=== PATIENT | male | born 1970 | race Caucasian/White ===

== ENCOUNTER 2024-12-15 10:29 | Inpatient (IN) | payer OTHER, SELFPAY ==
[2024-12-15] VITALS (10 sets, daily range): BP systolic 121–148; BP diastolic 61–93; PULSE 55–68; RESP 15–26; TEMP 36.8–37.3; O2SAT 95–100; BMI 20.5
--- NOTE | 2024-12-15 10:32 | DI.RAD.S_ITS ---
PROCEDURE: XR HIP W PEL IF DONE LT 2V INDICATIONS: FALL WHILE SKATING, SEVERE PAIN TECHNIQUE: AP pelvis with lateral view(s) of the left hip(s). COMPARISON: None. FINDINGS: Diffuse osseous demineralization. Acute, comminuted, left proximal femoral intertrochanteric fracture with involvement of the greater/lesser trochanters. The hip joints, sacroiliac joints, and pubic symphysis are preserved. IMPRESSION: Acute, comminuted left proximal femoral intertrochanteric fracture. Dictated by: Arnoldo Curry M.D. on 12/15/2024 at 11:23 Approved by: Arnoldo Curry M.D. on 12/15/2024 at 11:24
--- NOTE | 2024-12-15 10:32 | DI.RAD.S_ITS ---
PROCEDURE: XR FEMUR LT MIN 2V INDICATIONS: FALL WHILE SKATING, SEVERE PAIN TECHNIQUE: 2 views of the femur were acquired. COMPARISON: None. FINDINGS: No acute fracture or dislocation of the distal left femur. IMPRESSION: No acute fracture or dislocation of the left distal femur. Please see the same-day pelvis and left hip x-rays for details regarding the left hip fracture. Dictated by: Arnoldo Curry M.D. on 12/15/2024 at 11:24 Approved by: Arnoldo Curry M.D. on 12/15/2024 at 11:24
--- NOTE | 2024-12-15 10:37 | ED_ITS ---
HPI - Extremity Injury (Lower) General Chief Complaint: Trauma Stated Complaint: poss Femur fx Time Seen by Provider: 12/15/24 10:32 History of Present Illness HPI Narrative: 54-year-old male with no reported past medical history presents by EMS from the [facility] for left hip pain. Patient was at the [facility] with his son and had a fall, landing on his left thigh. Reports 10/10 left thigh pain. He was given fentanyl by EMS prior to arrival. On arrival patient continues to complain of left hip pain. He has intact sensation in his toes and foot. Denies any other injury. Denies hitting his head, loss of consciousness, use of blood thinners. Related Data Allergies Allergy/AdvReac Type Severity Reaction Status Date / Time No Known Drug Allergies Allergy Verified 12/15/24 10:40 Patient History Social History Smoking Status: Current every day smoker Exam Initial Vital Signs Initial Vital Signs: Vital Signs Temperature 98.2 F 12/15/24 10:30 Pulse Rate 63 12/15/24 10:30 Respiratory Rate 19 12/15/24 10:30 Blood Pressure 148/80 H 12/15/24 10:30 Pulse Oximetry 100 12/15/24 10:30 Oxygen Delivery Method Room Air 12/15/24 10:30 Const: Awake, alert, in pain, nontoxic appearing Cardiac: regular rate, regular rhythm RESP: unlabored, conversational without dyspnea MSK: Left leg shortened, externally rotated, palpable DP pulses Skin: Warm, Dry, intact, no rashes Neuro: AO x3, CN II-XII grossly intact, moves all extremities Procedures Nerve Block Nerve Block 1: Time out performed: Yes Local Anesthetic: bupivacaine 0.5% and with epi Amount of anesthesia used (mL): 25 Side: left Nerve Blocks: femoral Additional Comments: Patient admitted upstairs post-procedure. No complications Course Orders Ordered: ED Orders 12/15/24 10:32 XR femur LT min 2V Stat XR hip w pel if done LT 2V Stat 12/15/24 10:45 CBC Auto Diff [Complete Blood Count AUTO DIFF] Stat CMP [Comprehensive Metabolic Panel] Stat PT [Prothrombin Time INR] Stat Type and Screen Stat Acetaminophen (Acetaminophen 325 Mg Tablet) 650 mg PO Q6H PRN PRN Reason: Fever/Mild Pain (1-3) Hydromorphone HCl (Hydromorphone 0.5 Mg Inj) 0.5 mg IV Q2H PRN PRN Reason: Pain, Severe (7-10) Naloxone HCl (Naloxone 0.4 Mg/Ml Vial) 0.2 mg IV Q2MIN PRN PRN Reason: Opiate Reversal Ondansetron HCl (Ondansetron 4 Mg Odt) 4 mg PO Q8HR PRN PRN Reason: Nausea And Vomiting Oxycodone HCl (Oxycodone Ir 10 Mg Tablet) 10 mg PO Q3H PRN PRN Reason: Pain, Severe (7-10) Sennosides (Sennosides 8.6 Mg Tablet) 17.2 mg PO BEDTIME JOHN Discontinued Medications Bupivacaine HCl/Epinephrine Bitart (Bupivacaine 0.5% W/ Epi (Pf) 30 Ml Vial) 20 ml INJ NOW ONE Stop: 12/15/24 13:01 Last Admin: 12/15/24 12:42 Dose: 20 ml Documented By: SPF Hydromorphone HCl (Hydromorphone 1 Mg Inj) 1 mg IV NOW ONE Stop: 12/15/24 10:33 Last Admin: 12/15/24 10:40 Dose: 1 mg Documented By: SPF Hydromorphone HCl (Hydromorphone 1 Mg Inj) 1 mg IV NOW ONE Stop: 12/15/24 12:18 Last Admin: 12/15/24 12:21 Dose: 1 mg Documented By: ALICE Vital Signs Vital signs: Vital Signs - 8 hr 12/15/24 10:30 12/15/24 10:34 12/15/24 10:36 Temperature 98.2 F 98.2 F Pulse Rate 63 68 65 Respiratory Rate 19 16 Blood Pressure 148/80 H 148/80 H Pulse Oximetry 100 100 99 Oxygen Delivery Method Room Air Room Air Room Air 12/15/24 11:00 12/15/24 11:30 Temperature Pulse Rate 59 L 61 Respiratory Rate 19 17 Blood Pressure Pulse Oximetry 97 Oxygen Delivery Method MDM - Extremity Injury (Lower) Lab Data 12/15/24 10:45 12/15/24 10:45 Labs: Lab Results 12/15/24 Range/Units 10:45 WBC 6.1 (4.5-11.0) X10^3/uL RBC 4.09 L (4.5-5.9) X10^6/uL Hgb 12.0 L (13.5-17.5) g/dL Hct 35.6 L (41-53) % MCV 86.9 (80-100) fL MCH 29.4 (26-34) PG MCHC 33.8 (30-36) % RDW 14.4 (11.6-14.8) % Plt Count 257 (150-400) X10^3/uL Neut % (Auto) 58.9 (50-75) % Lymph % (Auto) 29.1 (25-40) % [place] % (Auto) 10.7 (3-14) % Eos % (Auto) 0.3 L (2-4) % Baso % (Auto) 1.0 (0-2) % Neut # (Auto) 3600 (8734-4160) /uL Lymph # (Auto) 1800 (1776-0780) /uL [place] # (Auto) 700 (0-900) /uL Eos # (Auto) 0 (0-450) /uL Baso # (Auto) 100 (0-100) /uL PT 10.9 (9.4-12.5) SECONDS INR 1.0 (0.9-1.3) Sodium 134 L (137-145) mmol/L Potassium 3.8 (3.4-5.1) mmol/L Chloride 102 (98-107) mmol/L Carbon Dioxide 24 (22-32) mmol/L BUN 17 (9-20) mg/dL Creatinine 0.78 (0.66-1.25) mg/dL Estimated GFR > 60 (>60) mL/min BUN/Creatinine Ratio 21.8 (6-22) Glucose 153 H (70-100) mg/dL Calcium 7.9 L (8.4-10.2) mg/dL Total Bilirubin 0.3 (0.2-1.3) mg/dL AST 22 (17-59) IU/L ALT 19 (<50) IU/L Alkaline Phosphatase 60 (38-126) U/L Total Protein 6.6 (6.3-8.2) g/dL Albumin 3.9 (3.5-5.0) g/dL Globulin 2.7 (1.7-4.1) g/dL Albumin/Globulin Ratio 1.4 (1.0-2.8) Blood Type O Negative Antibody Screen Negative Imaging Data Extremity x-ray #1: Radiologist's Impression: PROCEDURE: XR HIP W PEL IF DONE LT 2V INDICATIONS: FALL WHILE SKATING, SEVERE PAIN TECHNIQUE: AP pelvis with lateral view(s) of the left hip(s). COMPARISON: None. FINDINGS: Diffuse osseous demineralization. Acute, comminuted, left proximal femoral intertrochanteric fracture with involvement of the greater/lesser trochanters. The hip joints, sacroiliac joints, and pubic symphysis are preserved. IMPRESSION: Acute, comminuted left proximal femoral intertrochanteric fracture. Dictated by: Arnoldo Curry M.D. on 12/15/2024 at 11:23 Approved by: Arnoldo Curry M.D. on 12/15/2024 at 11:24 Extremity x-ray #2: Radiologist's Impression: PROCEDURE: XR FEMUR LT MIN 2V INDICATIONS: FALL WHILE SKATING, SEVERE PAIN TECHNIQUE: 2 views of the femur were acquired. COMPARISON: None. FINDINGS: No acute fracture or dislocation of the distal left femur. IMPRESSION: No acute fracture or dislocation of the left distal femur. Please see the same- day pelvis and left hip x-rays for details regarding the left hip fracture. Dictated by: Arnoldo Curry M.D. on 12/15/2024 at 11:24 Approved by: Arnoldo Curry M.D. on 12/15/2024 at 11:24 MDM Narrative Medical decision making narrative: Fall while skateboarding. Severe point tenderness left hip. Patient was adamant that he did not injure any other part of his body. X-ray imaging confirms intertrochanteric hip fracture. Case discussed with Dr. Cantu of orthopedic surgery, who requested a medicine admit. Patient can have surgery tomorrow with available provider. Discharge Plan Departure Patient Disposition: Admitted As Inpatient Clinical Impression: Closed intertrochanteric fracture Admit Date/Time: 12/15/24 11:59 Admit Provider: Henny Pompa
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
[2024-12-15] MEDS: HYDROMORPHONE 1 MG INJ IV ×3 (10:40→23:34)
[2024-12-15 11:03] LABS: Add Manual Diff / Slide Review NO; Basophils Absolute Auto 100 /uL (0-100); Eosinophils Absolute Auto 0 /uL (0-450); Eosinophils Percent Auto 0.3 % (2-4); Hematocrit 35.6 % (41-53); Lymphocytes Absolute Auto 1800 /uL (1100-4500); Lymphocytes Percent Auto 29.1 % (25-40); Mean Corpuscular HGB Conc 33.8 % (30-36); Mean Corpuscular Hemoglobin 29.4 PG (26-34); Mean Corpuscular Volume 86.9 fL (80-100); Monocytes Absolute Auto 700 /uL (0-900); Monocytes Percent Auto 10.7 % (3-14); Neutrophils Absolute Auto 3600 /uL (1500-7000); Neutrophils Percent Auto 58.9 % (50-75); Platelet Count 257 X10^3/uL (150-400); Prothrombin Time 10.9 SECONDS (9.4-12.5); Red Blood Cell Count 4.09 X10^6/uL (4.5-5.9); Red Cell Distribution Width 14.4 % (11.6-14.8); White Blood Cell Count 6.1 X10^3/uL (4.5-11.0)
[2024-12-15 11:07] LABS: Alanine Aminotransferase 19 IU/L (<50); Albumin 3.9 g/dL (3.5-5.0); Albumin Globulin Ratio 1.4 (1.0-2.8); Alkaline Phosphatase 60 U/L (38-126); Aspartate Aminotransferase 22 IU/L (17-59); BUN Creatinine Ratio 21.8 (6-22); Bilirubin Total 0.3 mg/dL (0.2-1.3); Blood Urea Nitrogen 17 mg/dL (9-20); Calcium 7.9 mg/dL (8.4-10.2); Carbon Dioxide 24 mmol/L (22-32); Chloride 102 mmol/L (98-107); Estimated Glomerular Filt Rate > 60 mL/min (>60); Globulin 2.7 g/dL (1.7-4.1); Glucose 153 mg/dL (70-100); HEMOLYSIS < 15 (0-50); Potassium 3.8 mmol/L (3.4-5.1); Sodium 134 mmol/L (137-145); Total Protein 6.6 g/dL (6.3-8.2)
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
[2024-12-15] MEDS: BUPIVACAINE 0.5% W/ EPI (PF) 30 ML VIAL 20 ML INJ (12:42)
[2024-12-15] MEDS: OXYCODONE IR 10 MG TABLET PO ×2 (15:02→20:41)
--- NOTE | 2024-12-15 15:55 | PC.NURSE ---
Patient arrived from ER at about 1300. Had recently had a nerve block and was starting to get some pain relief from it. After about an hour patient started to complain of pian rating it a 6 and was given 10mg Oxycodone. General diet but will be NPO at midnight. Tolerated eating a cookie and drinking some water.
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
[2024-12-15] MEDS: HYDROMORPHONE 0.5 MG INJ IV ×2 (16:12→18:21)
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
[2024-12-15 17:13] LABS: Vitamin D 25 Hydroxy (D3) < 12.8 ng/mL (30.0-100.0)
[2024-12-15 17:18] LABS: Thyroid Stimulating Hormone 2.69 uIU/mL (0.47-4.68)
[2024-12-15] MEDS: SENNOSIDES 8.6 MG TABLET 17.2 MG PO (20:42)
[2024-12-15] MEDS: HYDROMORPHONE 0.5 MG INJ 1 MG IV (21:28)
[2024-12-16] VITALS (19 sets, daily range): BP systolic 105–157; BP diastolic 67–95; PULSE 59–80; RESP 11–19; TEMP 36.2–37; O2SAT 95–100; BMI 20.5
--- NOTE | 2024-12-16 | DI.RAD.S_ITS ---
PROCEDURE: XR HIP W PEL IF DONE LT 2V INDICATIONS: LT HIP IMNAILLING TECHNIQUE: Fluoroscopic guidance utilized for a right hip intramedullary sabina placement COMPARISON: None. FINDINGS: Fluoroscopic images submitted for a right femur intramedullary sabina placement. Please see operative note for further discussion. IMPRESSION: Fluoroscopic guidance. Dictated by: Stas Pitts M.D. on 12/17/2024 at 11:44 Approved by: Stas Pitts M.D. on 12/17/2024 at 11:44
--- NOTE | 2024-12-16 | DI.CT.S_ITS ---
PROCEDURE: CT HIP LEFT WITHOUT CON INDICATIONS: Left hip fracture TECHNIQUE: Noncontrast 3 mm axial sections acquired through the bony pelvis. Additional 3 mm axial sections acquired through the symptomatic hip joint, with coronal and sagittal reformats. COMPARISON: None. FINDINGS: Image quality: Excellent. Bones: Comminuted intertrochanteric fracture of the left hip. No dislocation. Soft tissues: Unremarkable IMPRESSION: Comminuted intertrochanteric fracture of the left hip. Dictated by: Merrill Pelayo M.D. on 12/16/2024 at 10:48 Approved by: Merrill Pelayo M.D. on 12/16/2024 at 10:49
[2024-12-16] MEDS: HYDROMORPHONE 1 MG INJ IV ×11 (01:44→17:31)
[2024-12-16] MEDS: KETOROLAC 30 MG/ML VIAL 15 MG IV (05:31)
[2024-12-16 05:40] LABS: Add Manual Diff / Slide Review NO; Basophils Absolute Auto 100 /uL (0-100); Basophils Percent Auto 0.6 % (0-2); Eosinophils Absolute Auto 0 /uL (0-450); Eosinophils Percent Auto 0.1 % (2-4); Hematocrit 38.4 % (41-53); Hemoglobin 12.8 g/dL (13.5-17.5); Lymphocytes Absolute Auto 1200 /uL (1100-4500); Mean Corpuscular HGB Conc 33.3 % (30-36); Mean Corpuscular Hemoglobin 28.7 PG (26-34); Mean Corpuscular Volume 86.3 fL (80-100); Monocytes Absolute Auto 1400 /uL (0-900); Monocytes Percent Auto 11.1 % (3-14); Neutrophils Absolute Auto 9700 /uL (1500-7000); Neutrophils Percent Auto 78.2 % (50-75); Platelet Count 233 X10^3/uL (150-400); Red Blood Cell Count 4.44 X10^6/uL (4.5-5.9); Red Cell Distribution Width 14.2 % (11.6-14.8); White Blood Cell Count 12.4 X10^3/uL (4.5-11.0)
[2024-12-16 05:51] LABS: BUN Creatinine Ratio 21.4 (6-22); Blood Urea Nitrogen 15 mg/dL (9-20); Carbon Dioxide 24 mmol/L (22-32); Chloride 101 mmol/L (98-107); Estimated Glomerular Filt Rate > 60 mL/min (>60); Glucose 131 mg/dL (70-100); HEMOLYSIS < 15 (0-50); Potassium 4.3 mmol/L (3.4-5.1); Sodium 131 mmol/L (137-145)
--- NOTE | 2024-12-16 07:34 | PM.PN.1 ---
Subjective Subjective Interval history: Summary: 54-year-old male with no significant past medical history who presented to the emergency department today [place] skate [place]. He reports he was riding scooter when he fell landing on his left hip. He notes he instantly knew he had had a significant injury. He was in significant pain was unable to move the left leg. He noticed right after the fall that his left leg was externally rotated and he could not move it. He was brought in by EMS. He was given fentanyl per EMS prior to arrival to the emergency department, he received 2 doses of IV hydromorphone. He also received a nerve block with good results. Labs revealed a white blood cell count of 6.1, hemoglobin of 12.0, platelet count of 257. Chemistry panel showed a very mild hyponatremia at 134, glucose of 153 (nonfasting). X-ray revealed diffuse osseous demineralization. There is an acute comminuted left proximal femoral intertrochanteric fracture with involvement of the greater/lesser trochanters. Orthopedic surgery, Dr. Cantu, was contacted by the emergency department who requested admission by our service. He reported to the emergency department that he does not typically perform these repairs and it would not be done until a different orthopedic surgeon is on-call tomorrow. S: His pain is well-controlled. He denies any other symptoms such as dyspnea, or chest pain. Exam Vital Signs (past 8 hours): Oxygen Delivery Method Room Air Oxygen Flow Rate 0 Narrative Exam Narrative: NAD, alert and oriented. Fluent speech. Lungs are clear, normal rate and effort. Heart is regular, no murmur gallop or rub. Abdomen is soft, non distended. Extremities are free of edema. Objective Imaging Hip x-ray and femur x-ray:: Radiologist's impression: Acute, comminuted left proximal femoral intertrochanteric fracture. No acute fracture or dislocation of the left distal femur. Please see the same-day pelvis and left hip x-rays for details regarding the left hip fracture. Labs 12/16/24 05:04 12/16/24 05:04 Labs: Laboratory Results - last 24 hr 12/15/24 12/16/24 10:45 05:04 WBC 6.1 12.4 H D RBC 4.09 L 4.44 L Hgb 12.0 L 12.8 L Hct 35.6 L 38.4 L MCV 86.9 86.3 MCH 29.4 28.7 MCHC 33.8 33.3 RDW 14.4 14.2 Plt Count 257 233 Neut % (Auto) 58.9 78.2 H Lymph % (Auto) 29.1 10.0 L [place] % (Auto) 10.7 11.1 Eos % (Auto) 0.3 L 0.1 L Baso % (Auto) 1.0 0.6 Neut # (Auto) 3600 9700 H Lymph # (Auto) 1800 1200 [place] # (Auto) 700 1400 H Eos # (Auto) 0 0 Baso # (Auto) 100 100 PT 10.9 INR 1.0 Sodium 134 L 131 L Potassium 3.8 4.3 Chloride 102 101 Carbon Dioxide 24 24 BUN 17 15 Creatinine 0.78 0.70 Estimated GFR > 60 > 60 BUN/Creatinine Ratio 21.8 21.4 Glucose 153 H 131 H Calcium 7.9 L 9.0 Total Bilirubin 0.3 AST 22 ALT 19 Alkaline Phosphatase 60 Total Protein 6.6 Albumin 3.9 Globulin 2.7 Albumin/Globulin Ratio 1.4 25-OH Vitamin D Total < 12.8 L TSH 2.69 Blood Type O Negative Antibody Screen Negative [facility] Medical History Hernia Family History Father Agent orange exposure Mother Iron deficiency anemia Social History details: Lives alone, son is 9 yo, 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 Acute comminuted L proximal femoral intertrochanteric fracture, present on admission and active. Pt will be admitted for pain mgmt and operative repair of his fx. Will give oral oxy and IV hydromorphone as needed. Will schedule tylenol TID as well. Await Ortho consult for surgical planning. 2. Pathologic fracture, present on admission and active. Pt has diffuse demineralization noted on xray. This is concerning for osteopenia/osteoporosis, especially given his young age. Will send Vit D level. Likely needs work up for osteoporosis, especially given his thin stature and nicotine use. He also has a low calcium level (normal albumin). 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 3. Mild anemia, present on admission and active. Will monitor. 4. Nicotine dependence, present on admission and active. He is a daily vape pen user. He declines a patch. PLAN: -operative repair today -Pain medications -monitor Hg Code Rn Radiation-Based Coding :: [TOTAL MINUTES] spent with patient and on the chart (including review of chart, obtaining history, exam, reviewing outside data, placing orders, documenting exam and treatment plan, and counseling patient) on [DATE]. Quality VTE Deep Vein Thrombosis/Pulmonary Embolism Present on Admission: No
--- NOTE | 2024-12-16 08:24 | PC.NURSE ---
Addendum entered by Xiomara Aguirre R.N. 12/16/24 16:33: Patient down to surgery at 1345. Addendum entered by Xiomara Aguirre R.N. 12/16/24 14:04: Patient down to surgery at 1345 Original Note: Patient complained of 8/10 pain to l.hip. Just given 1mg of iv dilaudid. He states that this helps for about an hour. He has been npo since 0000 and will go to surgery later today.
[2024-12-16] MEDS: SODIUM CHLORIDE 0.9% FLUSH 10 ML IV ×2 (12:21→22:01)
[2024-12-16] MEDS: ACETAMINOPHEN 325 MG TABLET 975 MG PO (14:19)
[2024-12-16] MEDS: LACTATED RINGERS 1,000 ML 42 ML IV (14:25)
--- NOTE | 2024-12-16 14:33 | CM.DANOTE ---
B DCP Assessment note pt is a 54yo M here with left femoral fracture, plan for OR today for repair. 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 Per chart review, pt lives with partner in [place]. Pt was at the [employer] when he fell and broke his femur. pt is indep at baseline, works for [employer]. Per RN report, pt planned for surgical repair today. Pt down in OR when this CONCRETE BUILDING ASSEMBLER attempted DCP assessment. P: pending post op recs/pt preference. anticipate return home with family support when medically stable. CM team will continue to follow as needed JONATHON Marti Discharge Planning/Care Management CM Discharge Assessment Start: 12/16/24 14:33 Freq: Status: Active Protocol: Document 12/16/24 14:33 SL (Rec: 12/16/24 14:33 [id number]) Discharge Planning Assessment Assigned Coffee Shop Manager JONATHON Cao DPOA/Assigned Designee Name Ирина, partner Contact Information [phone] Advance Directives? No History Provided By Patient Prior Living Arrangements House Household Members spouse,children Type of transporation used prior to Drives own vehicle admit Independent with ADL's Yes Is patient alert and oriented? Yes Discharge Plan Home Review Status In Process Please Provide Date Initial DC 12/16/24 Assessment Was Performed Next Review Type Continued Stay Review
--- NOTE | 2024-12-16 15:05 | P.HP_ITS ---
History of Present Illness History of Present Illness Chief complaint: poss Femur fx Narrative: CHIEF COMPLAINT: Left femur fracture PATIENT SUMMARY: The patient is a 54-year-old male who presented with a left femur fracture. HISTORY OF PRESENT ILLNESS: The patient is a 54-year-old male who presented with a left femur fracture following a fall while skateboarding. The patient did not report any hip pain prior to the fall and does not have any other areas of pain. He had immediate onset of pain after the injury. The pain has been present ever since. It is localized to the left hip. It does not radiate. It is partially alleviated by rest and worsened by any movement. PAST MEDICAL HISTORY: - Reports not having any other significant medical issues. SOCIAL HISTORY: - Vaping - Marijuana use - Lives with FAMILY HISTORY: Not mentioned VITALS AND PHYSICAL EXAM: Musculoskeletal: Physical exam of the left lower extremity demonstrated the leg held in an externally rotated position with swelling present around the thigh. Intact plantar flexion of the ankle and hallux, intact sensation to light touch throughout the entire foot, and a palpable DP pulse. Range of motion examination was not performed due to known injury. IMAGIN. AP pelvis and lateral left hip radiographs demonstrate a displaced intertrochanteric left femur fracture 2. CT scan of the left hip does not demonstrate any pathologic features which would be indicative of any sort of tumoral pathology ASSESSMENT: 1. Intertrochanteric left femur fracture PLAN: Treatment: - Surgical intervention to place a sabina down the bone with screws at the top and bottom for stabilization. - Allow weight-bearing as tolerated post-operatively. Tests: - Imaging: Reviewed AP pelvis and lateral left femur X-rays showing displaced intertrochanteric femur fracture; CT scan of the left hip did not show concerning features for malignancy. - Blood levels to be checked with a possibility of blood transfusion as needed. Patient Education: - Discussed surgical risks, including non-union, infection, and hardware breaking. - Explained the importance of post-operative mobilization and physical therapy. Follow-Up: - Plan to discharge home once the patient makes progress with physical therapy in the hospital given his social support at home from his . Disposition: - Mobilize and discharge home with continued physical therapy as progress allows. 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 members: spouse and children Smoking Status: Current every day smoker Smokeless tobacco user: other alcohol intake: never substance use type: does not use Meds Home Medications and Allergies Home Medications Medication Instructions Recorded Confirmed Type No Known Home Medications 12/15/24 12/15/24 History Allergies Allergy/AdvReac Type Severity Reaction Status Date / Time No Known Drug Allergies Allergy Verified 12/15/24 10:40 Exam Vital Signs (past 8 hours): - 12/16/24 14:21 Temperature 97.5 F L Pulse Rate 59 L Respiratory Rate 16 Blood Pressure 142/77 H Pulse Oximetry 95 Oxygen Delivery Method Room Air Oxygen Delivery Method Room Air Oxygen Flow Rate 0 Objective Labs 12/16/24 05:04 12/16/24 05:04 Labs: Laboratory Results - last 24 hr 12/15/24 12/16/24 10:45 05:04 WBC 12.4 H D RBC 4.44 L Hgb 12.8 L Hct 38.4 L MCV 86.3 MCH 28.7 MCHC 33.3 RDW 14.2 Plt Count 233 Neut % (Auto) 78.2 H Lymph % (Auto) 10.0 L [place] % (Auto) 11.1 Eos % (Auto) 0.1 L Baso % (Auto) 0.6 Neut # (Auto) 9700 H Lymph # (Auto) 1200 [place] # (Auto) 1400 H Eos # (Auto) 0 Baso # (Auto) 100 Sodium 131 L Potassium 4.3 Chloride 101 Carbon Dioxide 24 BUN 15 Creatinine 0.70 Estimated GFR > 60 BUN/Creatinine Ratio 21.4 Glucose 131 H Calcium 9.0 25-OH Vitamin D Total < 12.8 L TSH 2.69 Assessment & Plan Time-Based Coding :: [TOTAL MINUTES] spent with patient and on the chart (including review of chart, obtaining history, exam, reviewing outside data, placing orders, documenting exam and treatment plan, and counseling patient) on [DATE]. Quality VTE Deep Vein Thrombosis/Pulmonary Embolism Present on Admission: No
[2024-12-16] MEDS: CEFAZOLIN 2 GM/100 ML PREMIX 100 ML IV (15:30)
--- NOTE | 2024-12-16 15:38 | SUR.OPER ---
Supine on padded [place] table with bilateral legs secured in padded positioning boots and suspended in positioning spars, operative leg in traction per surgeon. Head on one pillow. Arm on non-operative side secured on padded armboard <90 degrees abduction. Arm on operative side padded and resting across chest then secured with tape over sheet. Padded perineal post in place per surgeon.
[2024-12-16] MEDS: BUPIVACAINE 0.25% W/ EPI 30 ML VIAL INJ (15:50)
--- NOTE | 2024-12-16 16:42 | PM.OP.1 ---
Operative Date/Time/Diagnoses Date of procedure: 12/16/24 Pre-op diagnosis: Intertrochanteric left femur fracture Post-op diagnosis: same Procedure & Clinicians Procedure: Intramedullary nailing of left intertrochanteric femur fracture Same procedure as scheduled: Yes Surgeon: Ed Murillo Click Yes if Unassisted: Yes Anesthesia Type: General and Local Operative Notes Estimated Blood Loss (mL): 200 Procedure in detail: Left Hip Intramedullary Nailing for Intertrochanteric Femur Fracture Implants: [place] [employer] 11.5 mm x 20 cm InterTAN nail 90 mm proximal lag screw 85 mm proximal compression screw Third 2.5 mm distal interlocking screw Procedure in detail: This patient presented to the hospital for hip pain and was found to have an intertrochanteric femur fracture on radiographic evaluation in the emergency department. ?As the on-call orthopedic surgeon I was consulted for management. ?The patient was admitted to the medicine service here at [facility] and received a preoperative evaluation to ensure that no optimization measures would be necessary to minimize the patient's risk for complications around surgery prior to proceeding with intramedullary nailing. ?After assessment from the diabetes clinical manager as well as anesthesia the patient was deemed optimized for surgery. ?Risks and benefits were discussed. ?All questions were answered. ?Informed consent was obtained. ?The operative site on the left extremity was marked. ?The patient was taken to the operating room and transferred onto a Allen table. ?All bony prominences were padded. ?A time-out procedure was performed verifying the correct patient identity, operative site, medical comorbidities, ASA score, and medication allergies. ?Injury radiographs displaying the injured hip were displayed in the room. ?Ancef and tranexamic acid were administered. Prior to incision fluoroscopy was utilized to manipulate the fracture into an appropriate reduction. ?This involved traction and 0 degrees of internal rotation. ?Once satisfied with the radiographic appearance of the fracture on an AP hip radiograph as well as a lateral hip radiograph the patient was prepped and draped in the usual sterile fashion. ?I mapped out the start points fluoroscopically with the guidewire. ?I obtained a start point at the tip of the greater trochanter on the AP view aiming towards the lesser trochanter and centered in the greater trochanter aiming down the femoral shaft on the lateral view. ?The guidewire was inserted and an opening Reamer was utilized to gain access to the canal. ?The InterTAN nail was introduced and passed down to an appropriate depth where the interlocking screws would aim towards the center of the femur on an AP view. ?On a lateral fluoroscopic view the rotation of the C-arm was adjusted until the nail was centered in the femoral head. ?The jig was then rotated so that it would line with the nail and the femoral head in order to set the rotation of the nail. ?A guidewire was passed and evaluated to ensure appropriate center center position on both the AP and lateral fluoroscopic images to minimize tip apex distance. ?Once satisfied with the guidewire position I used the drills for the lag and compression screws for the InterTAN nail and measured the length of those. ?The compression screw utilized was 5 mm shorter than the lag screw. ?These were both inserted and correct positioning was verified fluoroscopically. ?The distal interlocking screw was inserted through the jig. ?The threaded capsular was removed proximally and final fluoroscopic images were obtained evaluating fracture reduction and implant positioning on AP and lateral views throughout the entire construct. ?I was satisfied with these radiographs. The wound was copiously irrigated. ?Local anesthesia was infiltrated throughout the wound. ?The wound was closed and a soft dressing was applied. ?The patient was transferred off of the Allen table and brought to the PACU. Postoperative plan: Weightbearing as tolerated Aspirin 81 mg twice per day for DVT prophylaxis Recommend multimodal pain regimen Physical therapy to evaluate patient mobility, home set up, and availability of assistance at home to determine appropriateness for discharge home versus subacute rehab Follow up in 2 weeks at [facility]
[2024-12-16] MEDS: OXYCODONE IR 5 MG TABLET PO ×2 (16:50→17:17)
[2024-12-16] MEDS: hydrOXYzine 50 MG/ML INJ IM (16:54)
[2024-12-16] MEDS: METOCLOPRAMIDE 10 MG/2 ML INJ IV (17:20)
--- NOTE | 2024-12-16 18:07 | PC.NURSE ---
Patient back from surgery, he has pain medication down in [place] and he is resting comfortably up here. He has two dressings with gauze and tegaderm, patient had a nailing of his l.hip and femur.
[2024-12-16] MEDS: SENNOSIDES 8.6 MG TABLET 17.2 MG PO (21:14)
[2024-12-16] MEDS: OXYCODONE IR 10 MG TABLET PO (21:48)
[2024-12-16] MEDS: HYDROMORPHONE 0.5 MG INJ IV (23:24)
[2024-12-17] MEDS: HYDROMORPHONE 0.5 MG INJ 1 MG IV ×5 (01:24→19:52)
[2024-12-17 04:08] VITALS: BP 162/92; PULSE 80; RESP 19; TEMP 37; O2SAT 97
[2024-12-17] MEDS: ACETAMINOPHEN 325 MG TABLET 650 MG PO (04:10)
[2024-12-17] MEDS: KETOROLAC 30 MG/ML VIAL 15 MG IV ×2 (05:08→13:29)
--- NOTE | 2024-12-17 05:14 | PC.NURSE ---
Pt complains that pain meds are not working. Oxycodone IR 10mg PO and ice pack given with no relief from pain, then Dilaudid 1 mg IV q 3 hr given, pt states it only works for 1 hr. Order for Ketorlac 15mg given. Will continue to monitor for pain relief.
[2024-12-17 06:02] LABS: Hematocrit 32.3 % (41-53); Hemoglobin 10.7 g/dL (13.5-17.5); Mean Corpuscular HGB Conc 33.1 % (30-36); Mean Corpuscular Hemoglobin 28.8 PG (26-34); Platelet Count 230 X10^3/uL (150-400); Red Blood Cell Count 3.72 X10^6/uL (4.5-5.9); Red Cell Distribution Width 14.1 % (11.6-14.8); White Blood Cell Count 13.4 X10^3/uL (4.5-11.0)
[2024-12-17 06:20] LABS: Blood Urea Nitrogen 18 mg/dL (9-20); Calcium 8.4 mg/dL (8.4-10.2); Carbon Dioxide 25 mmol/L (22-32); Chloride 98 mmol/L (98-107); Estimated Glomerular Filt Rate > 60 mL/min (>60); Glucose 135 mg/dL (70-100); HEMOLYSIS < 15 (0-50); Potassium 4.6 mmol/L (3.4-5.1); Sodium 130 mmol/L (137-145)
[2024-12-17 07:00] VITALS: BP 133/81; PULSE 72; RESP 16; TEMP 36.6; O2SAT 99
[2024-12-17] MEDS: SODIUM CHLORIDE 0.9% FLUSH 10 ML IV ×2 (09:00→19:52)
--- NOTE | 2024-12-17 09:50 | PT.IIE ---
Current Diagnoses Displaced intertrochanteric fracture of unspecified femur, initial encounter for closed fracture (12/15/24) Surgery Performed Operation Date: 12/16/24 17:15 Actual Procedures p Intramedullary Nailing Femur(Left) - Ed Murillo MD Medical History (Last Reviewed 12/16/24 @ 07:36 by Monico Archibald MD) Hernia Physical Therapy Inpatient Evaluation/Re-Eval M1 PT/OT-IP Prior Functional Status Start: 12/17/24 13:04 Freq: NEEDED Status: Active Protocol: Document 12/17/24 09:50 AB (Rec: 12/17/24 13:20 AB [id number]) Medical Review Prior Functional Status Medical History Reviewed Yes Communication able to make needs known Mobility and Gait pt stated that he was independent with all mobilities and ambulation without AD Social History Household Members spouse,children Living Arrangements House Number of Floors (Floors) One Floor Number of Stairs To Enter/Railing? 3 steps to enter without rails Home Environment Standard Height Toilet,Tub/ Shower M2 PT-IP Current Condition Start: 12/17/24 13:04 Freq: NEEDED Status: Active Protocol: Document 12/17/24 09:50 AB (Rec: 12/17/24 13:20 AB [id number]) Physical Therapy Current Condition Current Condition Evaluation Date 12/17/24 Treatment Diagnosis L hip fx s/p ORIF; difficutly in walking Onset Date 12/15/24 M3 PT-IP Subjective Start: 12/17/24 13:04 Freq: NEEDED Status: Active Protocol: Document 12/17/24 09:50 AB (Rec: 12/17/24 13:20 AB [id number]) Subjective Physical Therapy Visit Type Type Initial Evaluation Visit Start Time 09:50 Visit Stop Time 11:35 Notes pt seen for split visits: 950- 10am and 1100am -1135. checked on pt this morning and obtained PLOF and home set up . pt refused to move or get out of the pain and stated that he needs his pain meds first. nurse gave pt oxycodone but pt stated that the oxycodone will not work and will need his dilaudid if he is going to move. talked to nurse on when dialudid is due. Checked back on pt after pt got his dilauded and agreed to get up. Number of LOCATION ANALYST Visits 0 Therapy Pain Assessment Pain When Pain Assessed At Rest Pain Present Pain Present Pain Reported Location left thigh/hip Intensity 9 Scale Used Numeric (0 - 10) Pain Behaviors Facial Grimacing,Guarding, Holding Area,Wincing Pain Management Techniques Apply Cold,Distraction, Modification of Treatment,Re- positioning,Timing of Activity with Medications M4 PT-IP Mobility and Gait Start: 12/17/24 13:04 Freq: NEEDED Status: Active Protocol: Document 12/17/24 09:50 AB (Rec: 12/17/24 13:20 AB [id number]) PT-Bed Mobility Assessment Supine to Sit Supine to Sit Maximum Assistance PT-Transfer Assessment Sit to and From Stand Sit to and from Stand Maximum Assistance,1 Person Assistance,2 Person Assistance ,Use of Upper Extremities Equipment Transfer Assistive Device Gait Belt,Front Wheeled Walker Orthotic/Prosthetic Devices or Brace: No Transfers Transfer Destination Chair Transfer Technique Stand Step Pivot Transfer Ability Level of Assist Maximum Assistance,1 Person Assistance,2 Person Assistance ,Use of Upper Extremities Comments Mobility Comments pt supine in bed. obtained PLOF and home set up. refused to move or get out of bed due to c/o increase pain despite pain meds given and wants dilaudid. checked back on pt after he received dilaudid and agreed to get up. BP: 127/78. completed supine to sit max A and max cues. pt needed increase time to complete. c/ o increase L hip pain. c/o lighteadedness . BP checked: 124/78. completed sit to stand max A x 1-2 and max cues . c/o too much pain with every movement. pt was able to step transfer to chair using fWW max A x 1-2 and max cues and sat on chair. refused further movement/ ambulation. agreed to sit up on chair. positioned pt on the chair. call light and table placed within reach. Gait Assessment Gait Gait Assistance Required: Maximum Assistance,1 Person Assist,2 Person Assist Distance (Feet) 2 Assistive Devices Assistive Device Gait Belt,Front Wheeled Walker Gait Deviations General Gait Pattern Decreased Stride Length Factors Limiting Gait Function Factors Limiting Gait Function Decreased Activity Tolerance, Decreased Strength,Difficulty Following Directions,Limited Range of Motion,Pain,Poor Balance,Poor Safety Awareness Comments Gait Comments able to take a few steps for transfers using fWW max A x 1- 2 and max cues PT-Balance Assessment Sitting Balance and Reactions Static Sitting Balance Ability Good Dynamic Sitting Balance Ability Good Standing Balance and Reactions Static Standing Balance Ability Poor Dynamic Standing Balance Ability Poor Device Used FWW M5 PT-IP Objective Assessments Start: 12/17/24 13:04 Freq: NEEDED Status: Active Protocol: Document 12/17/24 09:50 AB (Rec: 12/17/24 13:20 AB [id number]) Orientation Orientation/Cognition Level of Alertness Alert Orientation Name,Age,Place,Situation Language Function Ability No Deficits Noted Safety Awareness Decreased Safety Awareness Memory Description Short Term Impaired Strength Lower Extremity Strength Assessment Left Impaired Hip 3-/5 Knee 3+/5 Muscle Tone Muscle Tone WNL Yes M6 PT-IP Treatment Start: 12/17/24 13:04 Freq: NEEDED Status: Active Protocol: Document 12/17/24 09:50 AB (Rec: 12/17/24 13:20 AB [id number]) Physical Therapy Treatment Exercises Exercises Heel Slides Education Education Provided Precautions,Weight Bearing Status,Post-Op Packet,Safety M7 PT-IP Assessment and Plan Start: 12/17/24 13:04 Freq: NEEDED Status: Active Protocol: Document 12/17/24 09:50 AB (Rec: 12/17/24 13:20 AB [id number]) PT Summary Assessment and Plan Potential Rehabilitation Potential Fair Status of Condition at Evaluation Evolving Summary Impairments Pain,ROM,Strength,Balance, Coordination,Sensation,Tone, Cognition,Bed Mobility, Transfers,Gait,Activity Tolerance Assessment Summary pt is a 54 y/o M s/p fall and sustain a L femur fx and underwent intramedullary nailing POD 1. pt is WBAT on LLE. pt requiring max A x 1-2 with mobilities and was only able to take a few steps for transfers using FWW max A x 1- 2 and max cues. pt unable to tolerate much activity due to c/o increase L hip pain. pt will require SNF rehab to improve overall strength and mobility. Goals Bed Mobility Goal Minimal Assistance Transfer Goal Minimal Assistance,Front Wheeled Walker Gait Goal Minimal Assistance,Front Wheel Walker Gait Distance 50 Other Goals improve bed mobility, transfers, ambulation using FWW ~ 150 ft SBA up/down 3 steps CGA Days to Meet Goals 10 Frequency of Treatment Other frequency 1-2x/day Treatment Plan Physical Therapy Treatment Plan Bed Mobility Training,Transfer Training,Gait Training, Therapeutic Exercise,Balance Retraining,Post Op Education, Discharge Planning,Hot or Cold Pack,Neuromuscular Re-ed, Coordination Retraining,Manual Therapy Weight Bearing Status Weight Bearing Status Weight Bear as Tolerated Allowed Weight Bearing Amount (enter % LLE WBAT or #) (%) Recommendations To Nursing Amount of Assist Needed 2 Person Assist Discharge Recommendations PT Discharge Recommendations SNF Rehab Equipment Needed for Home Before FWW if pt goes home Discharge Transportation Needs at Discharge Wheelchair/Cabulance
[2024-12-17] MEDS: OXYCODONE IR 10 MG TABLET PO ×2 (09:53→13:04)
--- NOTE | 2024-12-17 11:56 | PC.NURSE ---
Day shift: pt said that his pain is not being controlled. He has been rating his pain between 7 and 10 so far this morning. He expressed no relief with 10mg oxy PO, and said that the 1mg IV dilaudid only helps for about an hour. MD Mart notified. Pt currently sitting in chair after assistance with PT.
[2024-12-17 12:00] VITALS: BP 136/86; PULSE 80; RESP 15; TEMP 37; O2SAT 97
[2024-12-17] MEDS: HYDROMORPHONE 2 MG TABLET 4 MG PO ×2 (14:06→21:57)
--- NOTE | 2024-12-17 14:15 | PT.IPTN ---
Current Diagnoses Displaced intertrochanteric fracture of unspecified femur, initial encounter for closed fracture (12/15/24) Surgery Performed Operation Date: 12/16/24 17:15 Actual Procedures p Intramedullary Nailing Femur(Left) - Ed Murillo MD Physical Therapy Treatment Note M2 PT-IP Current Condition Start: 12/17/24 13:04 Freq: NEEDED Status: Active Protocol: Document 12/17/24 09:50 AB (Rec: 12/17/24 13:20 AB [id number]) Physical Therapy Current Condition Current Condition Evaluation Date 12/17/24 Treatment Diagnosis L hip fx s/p ORIF; difficutly in walking Onset Date 12/15/24 M3 PT-IP Subjective Start: 12/17/24 13:04 Freq: NEEDED Status: Active Protocol: Document 12/17/24 14:15 AB (Rec: 12/17/24 15:58 AB [id number]) Subjective Physical Therapy Visit Type Type Treatment Note Visit Start Time 14:15 Visit Stop Time 14:35 Number of STACKER OPERATOR Visits 0 Physical Therapy Visit Comments Patient Comments agreeable to do PT Therapy Pain Assessment Pain When Pain Assessed At Rest Pain Present Pain Present Pain Reported Location left thigh/hip Intensity 9 Scale Used Numeric (0 - 10) Pain Management Techniques Distraction,Modification of Treatment,Re-positioning, Timing of Activity with Medications M4 PT-IP Mobility and Gait Start: 12/17/24 13:04 Freq: NEEDED Status: Active Protocol: Document 12/17/24 14:15 AB (Rec: 12/17/24 15:58 AB [id number]) PT-Bed Mobility Assessment Sit to Supine Sit to Supine Maximum Assistance,1 Person Assistance,Head of Bed Elevated PT-Transfer Assessment Sit to and From Stand Sit to and from Stand Maximum Assistance,1 Person Assistance,Use of Upper Extremities Equipment Transfer Assistive Device Gait Belt,Front Wheeled Walker Orthotic/Prosthetic Devices or Brace: No Transfers Transfer Destination Bed Transfer Technique Stand Step Pivot Transfer Ability Level of Assist Maximum Assistance,1 Person Assistance,Use of Upper Extremities Comments Mobility Comments pt sitting on the chair. spouse in room. pt agreed to do PT. completed sit to stand max A and max cues. ambulated ~ 3 ft using FWW max A and max cues and with chair follow. continues to c/o increase L hip pain. max A for controlled descent to chair. pt requested to go back to bed. sit to stand from chair max A and step transfer to bed max A and max cues. completed sit to supine max A and max cues. positioned pt in bed. call light and table placed within reach. Gait Assessment Gait Gait Assistance Required: Maximum Assistance,1 Person Assist Distance (Feet) 3 Able to Maintain Weight Bearing Status Yes During Gait Assistive Devices Assistive Device Gait Belt,Front Wheeled Walker Orthotic/Prosthetic Devices or Brace: No Gait Deviations General Gait Pattern Decreased Stride Length, Decreased Feet Clearance,Step- to Gait Factors Limiting Gait Function Factors Limiting Gait Function Decreased Activity Tolerance, Decreased Strength,Limited Range of Motion,Pain,Poor Balance,Poor Safety Awareness M5 PT-IP Objective Assessments Start: 12/17/24 13:04 Freq: NEEDED Status: Active Protocol: Document 12/17/24 09:50 AB (Rec: 12/17/24 13:20 AB [id number]) Orientation Orientation/Cognition Level of Alertness Alert Orientation Name,Age,Place,Situation Language Function Ability No Deficits Noted Safety Awareness Decreased Safety Awareness Memory Description Short Term Impaired Strength Lower Extremity Strength Assessment Left Impaired Hip 3-/5 Knee 3+/5 Muscle Tone Muscle Tone WNL Yes M6 PT-IP Treatment Start: 12/17/24 13:04 Freq: NEEDED Status: Active Protocol: Document 12/17/24 14:15 AB (Rec: 12/17/24 15:58 AB [id number]) Physical Therapy Treatment Education Education Provided Safety M7 PT-IP Assessment and Plan Start: 12/17/24 13:04 Freq: NEEDED Status: Active Protocol: Document 12/17/24 14:15 AB (Rec: 12/17/24 15:58 AB [id number]) PT Summary Assessment and Plan Potential Rehabilitation Potential Fair Summary Impairments Pain,ROM,Strength,Balance, Coordination,Sensation,Tone, Cognition,Bed Mobility, Transfers,Gait,Activity Tolerance Progress Towards Goals Slow Progress due to Pain Assessment Summary pt requiring max A and max cues with mobility. able to ambulate this afternoon but only tolerated ~ 3 ft using FWW max A and max cues. pt continue to c/o increase L hip . pt will benefit from SNF rehab to improve strength and mobility. Goals Bed Mobility Goal Minimal Assistance Transfer Goal Minimal Assistance,Front Wheeled Walker Gait Goal Minimal Assistance,Front Wheel Walker Gait Distance 50 Other Goals improve bed mobility, transfers, ambulation using FWW ~ 150 ft SBA up/down 3 steps CGA Days to Meet Goals 10 Frequency of Treatment Other frequency 1-2x/day Treatment Plan Physical Therapy Treatment Plan Bed Mobility Training,Transfer Training,Gait Training, Therapeutic Exercise,Balance Retraining,Post Op Education, Discharge Planning,Hot or Cold Pack,Neuromuscular Re-ed, Coordination Retraining,Manual Therapy Weight Bearing Status Weight Bearing Status Weight Bear as Tolerated Allowed Weight Bearing Amount (enter % LLE WBAT or #) (%) Recommendations To Nursing Amount of Assist Needed 2 Person Assist Discharge Recommendations PT Discharge Recommendations SNF Rehab Equipment Needed for Home Before FWW if pt goes home Discharge Transportation Needs at Discharge Wheelchair/Cabulance
--- NOTE | 2024-12-17 14:42 | PM.PNPO.1 ---
Subjective Subjective Interval history: Vidal is a pleasant 54 year old male who is POD#1 s/p Intramedullary nailing of left intertrochanteric femur fracture by Dr. Murillo. Today he reports he is doing well. He worked w/ PT twice, reports he made good progress, able to WB w/ less pain the second round. He is urinating well without issue. He lives at home with his and family and states he would ideally like to discharge home to them. His is currently coordinating getting patient on walker to use at home. He denies history of blood clot. Denies fever, chills, chest pain, SOB, nausea, vomiting. Denies any numbness or tingling of the left lower extremity. Exam Vital Signs (past 8 hours): - 12/17/24 07:00 12/17/24 12:00 Temperature 97.8 F 98.6 F Pulse Rate 72 80 Respiratory Rate 16 15 Blood Pressure 133/81 136/86 Pulse Oximetry 99 97 Oxygen Flow Rate 0 0 Oxygen Delivery Method Room Air Oxygen Flow Rate 0 Narrative Exam Narrative: Patient lying comfortably in bed during our interview today. No acute distress. AOx3. Grossly normal alignment of the left lower extremity with mild-moderate swelling to the left thigh. Tenderness to palpation around the incision sites. No medial side tenderness. 5/5 strength with DF, PF, EHL bilaterally. Gross sensation intact throughout bilateral lower extremities. Calves soft and non-tender bilaterally. SCDs are on and functioning. Brisk capillary refill, pulses intact. Proximal post-surgical dressing clean, dry and intact over the lateral left thigh, distal surgical incision site dressing is saturated with bloody discharge. 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 2) Continue multimodal pain management with ice to the hip for additional pain control. 3) ASA b.i.d. for DVT prophylaxis. 4) Work w/ physical therapy to improve range of motion and mobility. WBAT. 5) Keep dressing intact, clean, dry until 2 week postop appointment. No soaking the incision site in pools or tubs. No topical ointments or creams to the incision site. Will need to put a new clean distal incision site dressing on prior to d/c. 6) Follow up at [facility] orthopedics in 2 weeks for a postop appointment and wound check. All patient's questions were answered, he demonstrates understanding and is in agreement with the plan. Call our office if any questions or concerns arise. Quality VTE Deep Vein Thrombosis/Pulmonary Embolism Present on Admission: No
--- NOTE | 2024-12-17 14:45 | OT.IP.EVAL ---
Current Diagnoses Displaced intertrochanteric fracture of unspecified femur, initial encounter for closed fracture (12/15/24) Surgery Performed Operation Date: 12/16/24 17:15 Actual Procedures p Intramedullary Nailing Femur(Left) - Ed Murillo MD Past Medical History (Last Reviewed 12/16/24 @ 07:36 by Monico Archibald MD) Hernia Occupational Therapy Inpatient Evaluation/Re-Eval M1 PT/OT-IP Prior Functional Status Start: 12/17/24 13:04 Freq: NEEDED Status: Active Protocol: Document 12/17/24 15:22 [facility] (Rec: 12/17/24 15:33 [facility] [id number]) Medical Review Prior Functional Status Medical History Reviewed Yes Communication able to make needs known Mobility and Gait pt stated that he was independent with all mobilities and ambulation without AD Activities of Daily Living and IADL's Completely independent with all needs and no devices used. Social History Household Members spouse,children Living Arrangements House Number of Floors (Floors) One Floor Number of Stairs To Enter/Railing? 3 steps to enter without rails Home Environment Standard Height Toilet,Tub/ Shower M2 OT-IP Current Condition Start: 12/17/24 15:21 Freq: Status: Active Protocol: Document 12/17/24 15:22 [facility] (Rec: 12/17/24 15:33 [facility] [id number]) Occupational Therapy Current Condition Current Condition Evaluation Date 12/17/24 Treatment Diagnosis Left hip fx, S/P ORIF Weight Bearing Status Weight Bearing Status Weight Bear as Tolerated M3 OT- IP Subjective and Pain Start: 12/17/24 15:21 Freq: Status: Active Protocol: Document 12/17/24 15:22 [facility] (Rec: 12/17/24 15:33 [facility] [id number]) OT- Subjective Occupational Therapy Visit Comments Patient Comments Pt agreed to get back to bed. Patient/Caregiver Goals To go home but open to skilled rehab if needed. OT Pain Assessment Pain When Pain Assessed During Mobility Pain Present Pain Present Pain Reported Location left thigh/hip Intensity 10 Scale Used Numeric (0 - 10) M4 OT- IP ADL's Start: 12/17/24 15:21 Freq: Status: Active Protocol: Document 12/17/24 15:22 [facility] (Rec: 12/17/24 15:33 [facility] [id number]) OT [id number] Comments OT Self-Feeding Comments Not at meal time, no issues needed. OT ADL-Grooming Comments OT Grooming Comments Not performed. OT ADL-Oral Care Comments Oral Care Comments Not performed. OT ADL-Dressing General Eval Lower Body Dressing Ability Maximum Assistance Areas Needing Assistance Socks OT ADL-Toileting Comments OT Toileting Comments NOt having to go. Suggested use of urinal and getting a BSC for home use. OT ADL-Bathing Comments OT Bathing Comments Pt will benefit from a tub bench. M5 OT- IP IADL's Start: 12/17/24 15:21 Freq: Status: Active Protocol: Document 12/17/24 15:22 [facility] (Rec: 12/17/24 15:33 [facility] [id number]) OT-Instrumental Activities of Daily Living Deficits IADL Deficits Identified Deficits Home Safety Awareness Awareness of Need for Assistance at Home Good Awareness Ability to Problem Solve Emergency Able to Problem Solve Situations Medication Management Medication Management No Deficits Identified Money Management Money Management No Deficits Identified Meal Preparation Meal Preparation Caregiver Provides Assist Drill Rig Operator Drill Rig Operator Caregiver Provides Assist M6 OT- IP Functional Cognition Start: 12/17/24 15:21 Freq: Status: Active Protocol: Document 12/17/24 15:22 [facility] (Rec: 12/17/24 15:33 [facility] [id number]) Cognitive Factors Limiting Selfcare Function Cognitive Ability Level of Alertness Alert Patient Orientation Name,Place,Situation Attention Span Ability Capable of Focused Attention, Capable of Sustained Attention Ability to Follow Commands Able to Follow One Step Commands Cognitive Comments Cognitive Assessment Comments Pt able to follow commands for ADL and mobility needs. Pt needing encouragement and reassurance as stating pain level is 10/10. Pt does admit the pain decreases when not moving. OT- Vision and Hearing OT- Hearing Assessment OT- Hearing Assessment WFL OT- Vision Assessment Visual Acuity WFL M7 OT- IP Mobility and Balance Start: 12/17/24 15:21 Freq: Status: Active Protocol: Document 12/17/24 15:22 [facility] (Rec: 12/17/24 15:33 [facility] [id number]) OT- Bed Mobility Assessment Sit to Supine Sit to Supine Assist Maximum Assistance OT-Transfer Assessment Sit to and From Stand Sit to and from Stand Maximum Assistance,1 Person Assistance Transfers Transfer Ability Maximum Assistance,1 Person Assistance Technique Transfer Destination Bed,Chair Transfer Technique Stand Step Pivot Devices Transfer Assistive Devices Gait Belt,Front Wheeled Walker Comments Mobility Comments MAXA X1 to stand and from higher surfaces needing less assist. MAX AX 1 with FWW to take steps. MAX AX 1 to assist with LLE management needs. OT- Balance Assessment Sitting Balance and Reactions Static Sitting Balance Ability Good Dynamic Sitting Balance Ability Good Standing Balance and Reactions Static Standing Balance Ability Poor Dynamic Standing Balance Ability Poor M8 OT- IP Objective Assessments Start: 12/17/24 15:21 Freq: Status: Active Protocol: Document 12/17/24 15:22 [facility] (Rec: 12/17/24 15:33 [facility] [id number]) OT Gross Range of Motion Upper Extremity Range of Motion Assessment Within Functional Limits OT Strength Upper Extremity Strength Assessment Within Functional Limits M9 OT- IP Assessment and Plan Start: 12/17/24 15:21 Freq: Status: Active Protocol: Document 12/17/24 15:22 [facility] (Rec: 12/17/24 15:33 [facility] [id number]) OT Summary Assessment and Plan Potential Rehabilitation Potential Excellent Analytic Complexity at Evaluation Moderate Summary OT Impairments Pain,Strength,Balance, Functional Mobility,Dressing, Toileting,Bathing,Toilet Transfers,Shower Transfers, Activity Tolerance Progress Towards Goals Progressing Toward Goals Assessment Summary Pt MOD complexity and main barriers are pain, steps, and needing extensive one person assist for all needs at this time. Pt states in 10/10 pain at this time. Pending caregiver training, pt to go home with 24/7 assist versus skilled rehab. Able to educate pt and his for all equipment needs. Goals Self-Feeding Goal Independent Grooming Goal Independent Dressing Goal Contact Guard Assistance Toileting Goal Independent Bathing Goal Minimal Assistance Toilet Transfer Goal Standby Assistance Shower Transfer Goal Contact Guard Assistance Days to Meet Goals 5 Frequency of Treatment Other frequency 5x/week Treatment Plan OT Treatment Plan ADL Training,Functional Mobility,Patient/Family Education,Discharge Planning Other Treatment Recommendations and Next Caregiver training Treatment Focus Discharge Recommendations OT Discharge Recommendations Home with 24/7 Assist Available,Home Health,SNF Rehab,Home vs SNF Home Equipment Needs WC, BSC, tub bench, LB dressin equipment,FWW Transportation Needs at Discharge Private Vehicle,Wheelchair/ Cabulance
--- NOTE | 2024-12-17 15:45 | CM.DPNOTE ---
DCP note [employer] reviewed EMR. Per RN report, pt in lots of pain throughout day. Per PT/OT, limited ability to participate with therapies due to pain. currently rec rehab but hopeful that pain is better controlled tomorrow and pt will be cleared to dc home. [employer] met with pt and spouse Ирина in room. Pt confirms living with spouse and their child in [facility]. no PCP, [employer] provided a list of providers that take pt's insurance closer to his home. spouse working on getting w/c and walker for home, report knowing where to get DME. hopeful for home and to avoid rehab if possible. Spouse asked about work excuse/FMLA paperwork. [employer] gave pt email address, pt's employer will email this [employer] their forms for our providers to complete. 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 P: spouse working on getting w/c and walker for home. Pt's employer will email this [employer] FMLA paperwork for our team to complete. anticipate home with spouse when medically stable. CM team will continue to follow closely JONATHON Marti
[2024-12-17] MEDS: HYDROMORPHONE 2 MG TABLET PO (17:24)
[2024-12-17] MEDS: CYCLOBENZAPRINE 10 MG TABLET 5 MG PO (18:26)
[2024-12-17 19:00] VITALS: BP 125/76; PULSE 68; RESP 19; TEMP 36.9; O2SAT 98
--- NOTE | 2024-12-17 19:34 | P.PN_ITS ---
Subjective Subjective Interval history: 54 M with L femur fracture. Pain not controlled today, not responding to oxycodone. Slight improvement with change to oral dilaudid. Exam Vital Signs (past 8 hours): - 12/17/24 12:00 Temperature 98.6 F Pulse Rate 80 Respiratory Rate 15 Blood Pressure 136/86 Pulse Oximetry 97 Oxygen Flow Rate 0 Oxygen Delivery Method Room Air Oxygen Flow Rate 0 Narrative Exam Narrative: NAD, alert and oriented. Fluent speech. Lungs are clear, normal rate and effort. Heart is regular, no murmur gallop or rub. Abdomen is soft, non distended. 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 Acute comminuted L proximal femoral intertrochanteric fracture, present on admission and active. POD #1 s/p L intermedullary nail. pain control difficult today, changed to oral dilaudid but still needing IV pain medications. Also added oral toradol. Consider addition of gabapentin as well depending on pain control over the next 24-48 hrs. -monitor h/h and left leg swelling, dressing c/d/i. 2. Pathologic fracture, present on admission and active. Pt has diffuse demineralization noted on xray. This is concerning for osteopenia/osteoporosis, especially given his young age. Vitamin D level was less than 12 on our lab. Will start oral vit. D 2000 U daily. Likely needs work up for osteoporosis, especially given his thin stature and nicotine use. TSH was normal. - recommend continued outpatient follow up with primary care. 3. Mild anemia, present on admission and active. Will monitor. 4. Nicotine dependence, present on admission and active. He is a daily vape pen user. He declines a patch. 5. Hyponatremia - Na 130 today downtrending slightly, continue to trend. Plan -continue PT/OT -continue to adjust pain management -monitor Hg and left leg swelling. Code [employer] Supervisor-Based Coding :: [TOTAL MINUTES] spent with patient and on the chart (including review of chart, obtaining history, exam, reviewing outside data, placing orders, documenting exam and treatment plan, and counseling patient) on [DATE]. Quality VTE Deep Vein Thrombosis/Pulmonary Embolism Present on Admission: No
[2024-12-17] MEDS: SENNOSIDES 8.6 MG TABLET 17.2 MG PO (19:52)
[2024-12-17] MEDS: KETOROLAC 10 MG TABLET PO (20:56)
[2024-12-18] MEDS: HYDROMORPHONE 2 MG TABLET PO (01:26)
[2024-12-18] MEDS: CYCLOBENZAPRINE 10 MG TABLET 5 MG PO ×3 (02:14→19:59)
[2024-12-18] MEDS: KETOROLAC 10 MG TABLET PO ×3 (03:09→19:59)
[2024-12-18] MEDS: HYDROMORPHONE 2 MG TABLET 4 MG PO (05:46)
[2024-12-18 06:05] LABS: Hematocrit 31.2 % (41-53); Hemoglobin 10.4 g/dL (13.5-17.5); Mean Corpuscular HGB Conc 33.4 % (30-36); Mean Corpuscular Volume 86.8 fL (80-100); Platelet Count 245 X10^3/uL (150-400); White Blood Cell Count 11.8 X10^3/uL (4.5-11.0)
[2024-12-18 06:22] LABS: BUN Creatinine Ratio 26.8 (6-22); Blood Urea Nitrogen 22 mg/dL (9-20); Calcium 8.5 mg/dL (8.4-10.2); Carbon Dioxide 23 mmol/L (22-32); Chloride 98 mmol/L (98-107); Estimated Glomerular Filt Rate > 60 mL/min (>60); Glucose 119 mg/dL (70-100); HEMOLYSIS < 15 (0-50); Potassium 4.8 mmol/L (3.4-5.1); Sodium 130 mmol/L (137-145)
[2024-12-18 08:00] VITALS: BP 136/88; PULSE 86; RESP 17; TEMP 36.2; O2SAT 97
[2024-12-18] MEDS: HYDROMORPHONE 0.5 MG INJ 1 MG IV (08:24)
[2024-12-18] MEDS: CHOLECALCIFEROL (VITAMIN D3) 1,000 UNIT TABLET 2000 UNIT PO (08:25)
[2024-12-18] MEDS: GABAPENTIN 100 MG CAPSULE PO ×3 (08:25→19:59)
[2024-12-18] MEDS: SODIUM CHLORIDE 0.9% FLUSH 10 ML IV ×2 (08:26→21:37)
--- NOTE | 2024-12-18 08:53 | PT.IPTN ---
Current Diagnoses Displaced intertrochanteric fracture of unspecified femur, initial encounter for closed fracture (12/15/24) Surgery Performed Operation Date: 12/16/24 17:15 Actual Procedures p Intramedullary Nailing Femur(Left) - Ed Murillo MD Physical Therapy Treatment Note M2 PT-IP Current Condition Start: 12/17/24 13:04 Freq: NEEDED Status: Active Protocol: Document 12/17/24 09:50 AB (Rec: 12/17/24 13:20 AB [id number]) Physical Therapy Current Condition Current Condition Evaluation Date 12/17/24 Treatment Diagnosis L hip fx s/p ORIF; difficutly in walking Onset Date 12/15/24 M3 PT-IP Subjective Start: 12/17/24 13:04 Freq: NEEDED Status: Active Protocol: Document 12/18/24 08:13 AB(2) (Rec: 12/18/24 08:53 AB(2) [id number]) Subjective Physical Therapy Visit Type Type Treatment Note Visit Start Time 08:19 Visit Stop Time 08:32 Number of RADIO ENGINEER Visits 1 Physical Therapy Visit Comments Patient Comments agreeable to participate in PT commenting back pain is worse than hip pain when lying in bed start of session, describes pain as excruciating . Therapy Pain Assessment Pain When Pain Assessed At Rest Pain Present Pain Present Pain Reported Location left thigh/hip Intensity 10 Scale Used Numeric (0 - 10) M4 PT-IP Mobility and Gait Start: 12/17/24 13:04 Freq: NEEDED Status: Active Protocol: Document 12/18/24 08:13 AB(2) (Rec: 12/18/24 08:53 AB(2) [id number]) PT-Bed Mobility Assessment Supine to Sit Supine to Sit Minimal Assistance Scooting Scooting to Edge of Bed Standby Assistance PT-Transfer Assessment Sit to and From Stand Sit to and from Stand Minimal Assistance,1 Person Assistance,Use of Upper Extremities Equipment Transfer Assistive Device Gait Belt,Front Wheeled Walker Orthotic/Prosthetic Devices or Brace: No Transfers Transfer Destination Bed,Chair Transfer Technique ambulation with FWW Transfer Ability Level of Assist Minimal Assistance,1 Person Assistance Comments Mobility Comments total assist to move L LE to edge of bed and off bed, Min assist for trunk positioning, scooting to edge of bed, sit to stand and ambulation with FWW 5 steps to chair WBAT. One step verbal cues for sequence for ambulation and stand to sit. Decreased hip hinge with stand to sit, positions buttocks close to edge of chair. Gait Assessment Gait Gait Assistance Required: Maximum Assistance,1 Person Assist Distance (Feet) 3 Able to Maintain Weight Bearing Status Yes During Gait Assistive Devices Assistive Device Gait Belt,Front Wheeled Walker Orthotic/Prosthetic Devices or Brace: No Gait Deviations General Gait Pattern Antalgic,Decreased Stride Length,Decreased Feet Clearance,Step-to Gait Factors Limiting Gait Function Factors Limiting Gait Function Decreased Activity Tolerance, Decreased Strength,Limited Range of Motion,Pain,Poor Balance,Poor Safety Awareness Comments Gait Comments Requires one step verbal cues for sequence and technique ambulation with FWW, verbal and visual cues for increased UE force on FWW during L LE stance phase. Pt left with nursing/receiving pain med. Call light and urinal within reach, verbal reminder staff to be present to transfer back to bed. PT-Balance Assessment Sitting Balance and Reactions Static Sitting Balance Ability Good Dynamic Sitting Balance Ability Good Standing Balance and Reactions Static Standing Balance Ability Poor Dynamic Standing Balance Ability Poor Device Used FWW M5 PT-IP Objective Assessments Start: 12/17/24 13:04 Freq: NEEDED Status: Active Protocol: Document 12/17/24 09:50 AB (Rec: 12/17/24 13:20 AB [id number]) Orientation Orientation/Cognition Level of Alertness Alert Orientation Name,Age,Place,Situation Language Function Ability No Deficits Noted Safety Awareness Decreased Safety Awareness Memory Description Short Term Impaired Strength Lower Extremity Strength Assessment Left Impaired Hip 3-/5 Knee 3+/5 Muscle Tone Muscle Tone WNL Yes M6 PT-IP Treatment Start: 12/17/24 13:04 Freq: NEEDED Status: Active Protocol: Document 12/18/24 08:13 AB(2) (Rec: 12/18/24 08:53 AB(2) [id number]) Physical Therapy Treatment Exercises Exercises Ankle Pumps,Gluteal Sets, Supine Hip Abduction Knee ROM Measurement abduction AA, but able to bridge with no c/o inc pain Education Education Provided Weight Bearing Status,Safety M7 PT-IP Assessment and Plan Start: 12/17/24 13:04 Freq: NEEDED Status: Active Protocol: Document 12/18/24 08:13 AB(2) (Rec: 12/18/24 08:53 AB(2) [id number]) PT Summary Assessment and Plan Potential Rehabilitation Potential Fair Summary Impairments Pain,ROM,Strength,Balance, Coordination,Sensation,Tone, Cognition,Bed Mobility, Transfers,Gait,Activity Tolerance Progress Towards Goals Slow Progress due to Pain Assessment Summary pt requiring max A and max cues with mobility. able to ambulate this afternoon but only tolerated ~ 3 ft using FWW max A and max cues. pt continue to c/o increase L hip . pt will benefit from SNF rehab to improve strength and mobility. Goals Bed Mobility Goal Minimal Assistance Transfer Goal Minimal Assistance,Front Wheeled Walker Gait Goal Minimal Assistance,Front Wheel Walker Gait Distance 50 Other Goals improve bed mobility, transfers, ambulation using FWW ~ 150 ft SBA up/down 3 steps CGA Days to Meet Goals 10 Frequency of Treatment Other frequency 1-2x/day Treatment Plan Physical Therapy Treatment Plan Bed Mobility Training,Transfer Training,Gait Training, Therapeutic Exercise,Balance Retraining,Post Op Education, Discharge Planning,Hot or Cold Pack,Neuromuscular Re-ed, Coordination Retraining,Manual Therapy Weight Bearing Status Weight Bearing Status Weight Bear as Tolerated Allowed Weight Bearing Amount (enter % LLE WBAT or #) (%) Recommendations To Nursing Amount of Assist Needed 2 Person Assist Discharge Recommendations PT Discharge Recommendations SNF Rehab Equipment Needed for Home Before FWW if pt goes home Discharge Transportation Needs at Discharge Wheelchair/Cabulance
[2024-12-18] MEDS: ACETAMINOPHEN 325 MG TABLET 975 MG PO ×2 (10:30→18:28)
--- NOTE | 2024-12-18 11:10 | OT.IP.TRT ---
Current Diagnoses Displaced intertrochanteric fracture of unspecified femur, initial encounter for closed fracture (12/15/24) Surgery Performed Operation Date: 12/16/24 17:15 Actual Procedures p Intramedullary Nailing Femur(Left) - Ed Murillo MD Occupational Therapy Treatment Note M2 OT-IP Current Condition Start: 12/17/24 15:21 Freq: Status: Active Protocol: Document 12/17/24 15:22 [facility] (Rec: 12/17/24 15:33 [facility] [id number]) Occupational Therapy Current Condition Current Condition Evaluation Date 12/17/24 Treatment Diagnosis Left hip fx, S/P ORIF Weight Bearing Status Weight Bearing Status Weight Bear as Tolerated M3 OT- IP Subjective and Pain Start: 12/17/24 15:21 Freq: Status: Active Protocol: Document 12/18/24 12:13 [facility] (Rec: 12/18/24 12:18 [facility] [id number]) OT- Subjective Occupational Therapy Visit Type Type Treatment Note Visit Start Time 10:47 Visit Stop Time 11:10 Occupational Therapy Visit Comments Patient Comments Pt's agreed to work with pt on getting up. Patient/Caregiver Goals TO go home. OT Pain Assessment Pain When Pain Assessed During Mobility Pain Present Pain Present Pain Reported Location left thigh/hip Intensity 7 Scale Used Numeric (0 - 10) M4 OT- IP ADL's Start: 12/17/24 15:21 Freq: Status: Active Protocol: Document 12/17/24 15:22 [facility] (Rec: 12/17/24 15:33 [facility] [id number]) OT [id number] Comments OT Self-Feeding Comments Not at meal time, no issues needed. OT ADL-Grooming Comments OT Grooming Comments Not performed. OT ADL-Oral Care Comments Oral Care Comments Not performed. OT ADL-Dressing General Eval Lower Body Dressing Ability Maximum Assistance Areas Needing Assistance Socks OT ADL-Toileting Comments OT Toileting Comments NOt having to go. Suggested use of urinal and getting a BSC for home use. OT ADL-Bathing Comments OT Bathing Comments Pt will benefit from a tub bench. M5 OT- IP IADL's Start: 12/17/24 15:21 Freq: Status: Active Protocol: Document 12/17/24 15:22 [facility] (Rec: 12/17/24 15:33 [facility] [id number]) OT-Instrumental Activities of Daily Living Deficits IADL Deficits Identified Deficits Home Safety Awareness Awareness of Need for Assistance at Home Good Awareness Ability to Problem Solve Emergency Able to Problem Solve Situations Medication Management Medication Management No Deficits Identified Money Management Money Management No Deficits Identified Meal Preparation Meal Preparation Caregiver Provides Assist Multimedia Engineer Multimedia Engineer Caregiver Provides Assist M6 OT- IP Functional Cognition Start: 12/17/24 15:21 Freq: Status: Active Protocol: Document 12/17/24 15:22 [facility] (Rec: 12/17/24 15:33 [facility] [id number]) Cognitive Factors Limiting Selfcare Function Cognitive Ability Level of Alertness Alert Patient Orientation Name,Place,Situation Attention Span Ability Capable of Focused Attention, Capable of Sustained Attention Ability to Follow Commands Able to Follow One Step Commands Cognitive Comments Cognitive Assessment Comments Pt able to follow commands for ADL and mobility needs. Pt needing encouragement and reassurance as stating pain level is 10/10. Pt does admit the pain decreases when not moving. OT- Vision and Hearing OT- Hearing Assessment OT- Hearing Assessment WFL OT- Vision Assessment Visual Acuity WFL M7 OT- IP Mobility and Balance Start: 12/17/24 15:21 Freq: Status: Active Protocol: Document 12/18/24 12:13 [facility] (Rec: 12/18/24 12:18 [facility] [id number]) OT-Transfer Assessment Sit to and From Stand Sit to and from Stand Minimal Assistance Transfers Transfer Ability Minimal Assistance Technique Transfer Destination Bed Transfer Technique Stand Step Pivot Devices Transfer Assistive Devices Gait Belt,Front Wheeled Walker OT- Balance Assessment Sitting Balance and Reactions Static Sitting Balance Ability Normal Dynamic Sitting Balance Ability Normal Standing Balance and Reactions Static Standing Balance Ability Good Dynamic Standing Balance Ability Fair Comments Other Balance Tests/Deviations/Treatment Pt heavy use of his hands on : surfaces to stand to the FWW. Pt 's educated how to assist pt to stand and walk around the room with good safety with CGA to RONDA. M8 OT- IP Objective Assessments Start: 12/17/24 15:21 Freq: Status: Active Protocol: Document 12/17/24 15:22 [facility] (Rec: 12/17/24 15:33 [facility] [id number]) OT Gross Range of Motion Upper Extremity Range of Motion Assessment Within Functional Limits OT Strength Upper Extremity Strength Assessment Within Functional Limits M9 OT- IP Assessment and Plan Start: 12/17/24 15:21 Freq: Status: Active Protocol: Document 12/18/24 12:13 [facility] (Rec: 12/18/24 12:18 [facility] [id number]) OT Summary Assessment and Plan Potential Rehabilitation Potential Excellent Analytic Complexity at Evaluation Moderate Summary OT Impairments Pain,Strength,Balance, Functional Mobility,Dressing, Toileting,Bathing,Toilet Transfers,Shower Transfers, Activity Tolerance Progress Towards Goals Progressing Toward Goals Assessment Summary Pt's pain more tolerable today and states able to feel his LLE more. Pt's able to assist with gait belt, transfer, and walking in the room with the FWW. Pt's still not able to get OT equipment suggested yesterday . Pt main barrier will be the steps. Pt to go home with 24/7 assist versus SNF. Goals Self-Feeding Goal Independent Grooming Goal Independent Dressing Goal Contact Guard Assistance Toileting Goal Independent Bathing Goal Minimal Assistance Toilet Transfer Goal Independent Shower Transfer Goal Contact Guard Assistance Days to Meet Goals 3 Frequency of Treatment Frequency Of Treatment Once a Day Treatment Plan OT Treatment Plan ADL Training,Functional Mobility,Patient/Family Education,Discharge Planning Discharge Recommendations OT Discharge Recommendations Home with 24/7 Assist Available,Home Health,SNF Rehab,Home vs SNF Home Equipment Needs WC, BSC, tub bench, LB dressing equipment,FWW Transportation Needs at Discharge Private Vehicle,Wheelchair/ Cabulance
--- NOTE | 2024-12-18 12:42 | CM.DPNOTE ---
DCP note STEEL FIXER reviewed EMR Per PT, still requiring a significant amount of assistance due to pain. per OT, pt did better today than yesterday. Per hospitalist in morning rounds, encouraged ortho team to sign FMLA paperwork due to pt having to follow up with them in a few weeks. STEEL FIXER received email from spouse with the FMLA paperwork. STEEL FIXER completed to best of ability. Need stop date/provider signature. Placed in chart for provider to sign. updated ortho PA on need for signature. Per provider in morning rounds, pt does have some leg swelling. trying muscle relaxers to helps with pain management. STEEL FIXER met with pt in room. Pt reported improvements but remains in significant pain today. Reports spouse working on getting walker/wc for home. Does not want this STEEL FIXER to start SNF referral process because he anticipates he will be ambulating with much improvement for home tomorrow/the next day but understands that eventually we will have to pursue alternatives discharges plans if he remains unable to ambulate but is medically stable to dc home. Pt reports frustrations with not getting as much pain meds as he believes he needs. STEEL FIXER updated RN on pt's reported pain, entered room to talk with him. P: pt hopeful for home with spouse support when medically stable. ALEX day or so? Barrier: pain management. NEED: completion of FMLA ppwk. CM team will continue to follow as needed JONATHON Marti
--- NOTE | 2024-12-18 13:34 | PT.IPTN ---
Current Diagnoses Displaced intertrochanteric fracture of unspecified femur, initial encounter for closed fracture (12/15/24) Surgery Performed Operation Date: 12/16/24 17:15 Actual Procedures p Intramedullary Nailing Femur(Left) - Ed Murillo MD Physical Therapy Treatment Note M2 PT-IP Current Condition Start: 12/17/24 13:04 Freq: NEEDED Status: Active Protocol: Document 12/18/24 13:15 SP (Rec: 12/18/24 13:52 SP [id number]) Physical Therapy Current Condition Current Condition Evaluation Date 12/17/24 Treatment Diagnosis L hip fx s/p ORIF; difficutly in walking Onset Date 12/15/24 M3 PT-IP Subjective Start: 12/17/24 13:04 Freq: NEEDED Status: Active Protocol: Document 12/18/24 13:15 SP (Rec: 12/18/24 13:52 SP [id number]) Subjective Physical Therapy Visit Type Type Treatment Note Visit Start Time 13:15 Visit Stop Time 13:34 Notes arrived end tx when pt back in chair resting. She is working on getting FWW and will add 2 SPC from [facility] to borrow for pt. Number of PRIMER WATERPROOFING MACHINE OPERATOR Visits 2 Physical Therapy Visit Comments Patient Comments Pt agreeable working with PRIMER WATERPROOFING MACHINE OPERATOR. Patient Goals Return home with to assist him. Therapy Pain Assessment Pain When Pain Assessed During Mobility Pain Present Pain Present Pain Reported Location left thigh/hip Intensity 5 Scale Used Numeric (0 - 10) Pain Behaviors Facial Grimacing,Guarding, Holding Area Pain Management Techniques Apply Cold,Distraction, Elevation,Modification of Treatment,Re-positioning, Timing of Activity with Medications M4 PT-IP Mobility and Gait Start: 12/17/24 13:04 Freq: NEEDED Status: Active Protocol: Document 12/18/24 13:15 SP (Rec: 12/18/24 13:52 SP [id number]) PT-Transfer Assessment Sit to and From Stand Sit to and from Stand Standby Assistance,Use of Upper Extremities Equipment Transfer Assistive Device Gait Belt,Front Wheeled Walker Orthotic/Prosthetic Devices or Brace: No Transfers Transfer Destination Chair Transfer Technique Ambulated /c FWW Transfer Ability Level of Assist Standby Assistance,Use of Upper Extremities Comments Mobility Comments Pt completed STS from chair SBA /c FWW. Gait around room NWB LLE initially then progressed to WBAT, cues for L knee flexion swing phase and TKE with glut fac during midstance phase improved with reps total 4 laps of 15 ft in room. Completed 1 portable step mgt /c Ria SPC and Min A by PRIMER WATERPROOFING MACHINE OPERATOR trunk support at gait belt and stated end tx can help with, cues proper sequencing and increased WB LLE with reps. Pt was reclined in chair with legs elevated with call light nearby. in room. Gait Assessment Gait Gait Assistance Required: Standby Assistance Distance (Feet) 60 Able to Maintain Weight Bearing Status Yes During Gait Assistive Devices Assistive Device Gait Belt,Front Wheeled Walker Orthotic/Prosthetic Devices or Brace: No Gait Deviations General Gait Pattern Antalgic,Decreased Stride Length,Decreased Feet Clearance,Step-to Gait Factors Limiting Gait Function Factors Limiting Gait Function Decreased Activity Tolerance, Decreased Strength,Limited Range of Motion,Pain Comments Gait Comments see mobility comments Stair Climbing Assessment Evaluation Level of Assist On Stairs Minimal Assistance,1 Person Assistance Devices Stair Climbing Assistive Devices Straight Cane Technique/Endurance Stair Climbing Direction Ascend and Descend Stair Climbing Technique Step to Step Number of Steps Climbed 1 Stair Climbing Set # Repetitions (reps) 3 Comments Stair Climbing Comments step to BUE Heavy WB on Ria SPC, Min A by PRIMER WATERPROOFING MACHINE OPERATOR at trunk. Cues proper sequencing RLE asc , LLE descend leading. PT-Balance Assessment Sitting Balance and Reactions Static Sitting Balance Ability Normal Dynamic Sitting Balance Ability Normal Standing Balance and Reactions Static Standing Balance Ability Good Dynamic Standing Balance Ability Good Device Used FWW M5 PT-IP Objective Assessments Start: 12/17/24 13:04 Freq: NEEDED Status: Active Protocol: Document 12/17/24 09:50 AB (Rec: 12/17/24 13:20 AB [id number]) Orientation Orientation/Cognition Level of Alertness Alert Orientation Name,Age,Place,Situation Language Function Ability No Deficits Noted Safety Awareness Decreased Safety Awareness Memory Description Short Term Impaired Strength Lower Extremity Strength Assessment Left Impaired Hip 3-/5 Knee 3+/5 Muscle Tone Muscle Tone WNL Yes M6 PT-IP Treatment Start: 12/17/24 13:04 Freq: NEEDED Status: Active Protocol: Document 12/18/24 13:15 SP (Rec: 12/18/24 13:52 SP [id number]) Physical Therapy Treatment Education Education Provided Weight Bearing Status,Safety M7 PT-IP Assessment and Plan Start: 12/17/24 13:04 Freq: NEEDED Status: Active Protocol: Document 12/18/24 13:15 SP (Rec: 12/18/24 13:52 SP [id number]) PT Summary Assessment and Plan Potential Rehabilitation Potential Good Summary Impairments Pain,ROM,Strength,Balance, Coordination,Sensation,Tone, Cognition,Bed Mobility, Transfers,Gait,Activity Tolerance Progress Towards Goals Slow Progress due to Pain,Slow Progress due to Activity Tolerance Assessment Summary Pt improved SBA during STS and gait around room SBA, cues for increased LLE WB and knee flexionfoot clearance swing through and TKE WB stance phase. Completed portable step x3 /c ria SPC support Pilar. is borrowing FWW and RIA SPC from [facility] tomorrow. Pt reports pain 5/10 during mobility. REcommending HHPT available of assist can provide when medically cleared. Goals Bed Mobility Goal Minimal Assistance Transfer Goal Minimal Assistance,Front Wheeled Walker Gait Goal Minimal Assistance,Front Wheel Walker Gait Distance 50 Other Goals improve bed mobility, transfers, ambulation using FWW ~ 150 ft SBA up/down 3 steps CGA Days to Meet Goals 10 Frequency of Treatment Other frequency 1-2x/day Treatment Plan Physical Therapy Treatment Plan Bed Mobility Training,Transfer Training,Gait Training, Therapeutic Exercise,Balance Retraining,Post Op Education, Discharge Planning,Hot or Cold Pack,Neuromuscular Re-ed, Coordination Retraining,Manual Therapy Other Recommendations and Next Treatment Further gait, LLE post op ex, Focus stairs Ria SPC. Weight Bearing Status Weight Bearing Status Weight Bear as Tolerated Allowed Weight Bearing Amount (enter % LLE WBAT or #) (%) Recommendations To Nursing Amount of Assist Needed Standby Assistance Discharge Recommendations PT Discharge Recommendations SNF Rehab Equipment Needed for Home Before FWW and Ria SPC if pt goes Discharge home- is borrowing from [facility] tomorrow. Transportation Needs at Discharge Private Vehicle
[2024-12-18] MEDS: ONDANSETRON 4 MG ODT PO ×2 (13:42→20:02)
--- NOTE | 2024-12-18 14:32 | PM.PNPO.1 ---
Subjective Subjective Date Patient Seen: 12/18/24 Time Patient Seen: 14:33 Interval history: Pt sitting up in chair. C/o dyspepsia from not eating enough last night. Voiding without difficulty. Says he is progressing with PT and that he has much better pain control today. Per spouse, discharge is waiting on obtaining medical equipment for home. Exam Vital Signs (past 8 hours): - 12/18/24 08:00 Temperature 97.2 F L Pulse Rate 86 Respiratory Rate 17 Blood Pressure 136/88 Pulse Oximetry 97 Oxygen Flow Rate 0 Oxygen Delivery Method Room Air Oxygen Flow Rate 0 Narrative Exam Narrative: 4/5 hip flexors, quadriceps, hamstrings; 5/5 PF, DF, EHL on left. Sensation to light touch intact throughout LLE. Calf soft and compressible. Dressings saturated with serosanguious fluid and changed; no active drainage from incision sites. 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 WBAT to LLE. F/u w/ ortho in 2 weeks for wound check. ASA 81mg BID x 4 weeks for VTE prophylaxis. Disposition and pain management per hospitalist service. Postoperative Procedures: Procedures Operation Date: 12/16/24 17:15 Actual Procedure Side Surgeon p Intramedullary Nailing Femur Left Ed Murillo MD Postoperative day: 2 Quality VTE Deep Vein Thrombosis/Pulmonary Embolism Present on Admission: No
[2024-12-18] MEDS: FAMOTIDINE 20 MG TABLET PO ×2 (14:41→19:59)
[2024-12-18] MEDS: ASPIRIN EC 81 MG TABLET PO ×2 (15:39→19:59)
[2024-12-18] MEDS: METOCLOPRAMIDE 10 MG/2 ML INJ IV (17:16)
--- NOTE | 2024-12-18 17:32 | PM.PN.1 ---
Subjective Subjective Interval history: 54 M with L femur fracture. Pain not controlled today, not responding to oxycodone. Slight improvement with change to oral dilaudid. Exam Vital Signs (past 8 hours): Oxygen Delivery Method Room Air Oxygen Flow Rate 0 Narrative Exam Narrative: NAD, alert and oriented. Fluent speech. Lungs are clear, normal rate and effort. Heart is regular, no murmur gallop or rub. Abdomen is soft, non distended. 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 Acute comminuted L proximal femoral intertrochanteric fracture, present on admission and active. s/p L intermedullary nail. pain control difficult today but better, changed to oral dilaudid but still needing IV pain medications. Also added oral toradol. Added gabapentin TID this AM as well. -monitor h/h and left leg swelling, dressing c/d/i. -continue scheduled tylenol and gabapentin Ideally step-paez progression of pain medication 1st - muscle relaxants and toradol 2nd - oral dilaudid with 2 mg first then 4 mg for breakthrough 3rd - IV dilaudid 2. Pathologic fracture, present on admission and active. Pt has diffuse demineralization noted on xray. This is concerning for osteopenia/osteoporosis, especially given his young age. Vitamin D level was less than 12 on our lab. Will start oral vit. D 2000 U daily. Likely needs work up for osteoporosis, especially given his thin stature and nicotine use. TSH was normal. - recommend continued outpatient follow up with primary care. 3. Mild anemia, present on admission and active. Will monitor. 4. Nicotine dependence, present on admission and active. He is a daily vape pen user. He declines a patch. 5. Hyponatremia - Na 130 today downtrending slightly, continue to trend. Plan -continue PT/OT -continue to adjust pain management -monitor Hg and left leg swelling. Code Supervising Law Enforcement Analyst-Based Coding :: [TOTAL MINUTES] spent with patient and on the chart (including review of chart, obtaining history, exam, reviewing outside data, placing orders, documenting exam and treatment plan, and counseling patient) on [DATE]. Quality VTE Deep Vein Thrombosis/Pulmonary Embolism Present on Admission: No
[2024-12-18 19:00] VITALS: BP 124/66; PULSE 79; RESP 18; TEMP 37.3; O2SAT 93
[2024-12-18] MEDS: SENNOSIDES 8.6 MG TABLET 17.2 MG PO (19:59)
[2024-12-18] MEDS: HYDROMORPHONE 1 MG INJ IV (20:40)
--- NOTE | 2024-12-19 00:17 | PC.NURSE ---
Addendum entered by Flores Morris R.N. 12/19/24 06:18: Pt reports pain more controlled through the night. Down to 3/10 after last dose of pain medication and sleeping at this time. Addendum entered by Flores Morris R.N. 12/19/24 06:17: Ambulated in hallway x 3 through the night. Original Note: Patient angry, yelling and cursing stating the we are not controlling my pain, oral medications are going to make me throw up! I've been here for 4 days and you guys are trying to keep me in pain! I fucking had hip surgery and what you are giving me is not going to help! You guys are fucking trying to keep me in pain! Education for pain medications provided. PRN Medications given as ordered. Patient up for a walk down the duron, SBA FWW, tolerated well without complaints of pain. Apologized stating I'm not usually like that. Checked on pt after walk, stated he was doing ok.
[2024-12-19] MEDS: ACETAMINOPHEN 325 MG TABLET 975 MG PO ×2 (01:45→10:53)
[2024-12-19] MEDS: HYDROMORPHONE 2 MG TABLET PO ×3 (01:45→13:34)
[2024-12-19] MEDS: CYCLOBENZAPRINE 10 MG TABLET 5 MG PO (03:37)
[2024-12-19] MEDS: HYDROMORPHONE 1 MG INJ IV (03:38)
[2024-12-19] MEDS: KETOROLAC 10 MG TABLET PO ×2 (04:24→10:52)
--- NOTE | 2024-12-19 06:50 | P.PN_ITS ---
Subjective Subjective Date Patient Seen: 12/19/24 Time Patient Seen: 06:50 Interval history: Pt sitting up in chair. Thinks dyspepsia is better, feels pain continues to improve. PT recommending SNF, but pt is planning to discharge home w/ spouse once appropriate medical equipment has been obtained. Exam Vital Signs (past 8 hours): Oxygen Delivery Method Room Air Oxygen Flow Rate 0 Narrative Exam Narrative: 5/5 strength in hip flexors, quadriceps, hamstrings, PF, DF, EHL on left. Sensation to light touch intact throughout LLE. Calf soft and compressible. Dressing changed yesterday; CDI. 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 F/u w/ ortho in 2 weeks for wound check. ASA 81mg BID x 4 weeks for VTE prophylaxis. Disposition and pain management per hospitalist service. Postoperative Procedures: Procedures Operation Date: 12/16/24 17:15 Actual Procedure Side Surgeon p Intramedullary Nailing Femur Left Ed Murillo MD Postoperative day: 3 Quality VTE Deep Vein Thrombosis/Pulmonary Embolism Present on Admission: No
[2024-12-19 08:00] VITALS: BP 127/75; PULSE 75; RESP 16; TEMP 36.8; O2SAT 96
--- NOTE | 2024-12-19 08:51 | PT.IPTN ---
Current Diagnoses Displaced intertrochanteric fracture of unspecified femur, initial encounter for closed fracture (12/15/24) Surgery Performed Operation Date: 12/16/24 17:15 Actual Procedures p Intramedullary Nailing Femur(Left) - Ed Murillo MD Physical Therapy Treatment Note M2 PT-IP Current Condition Start: 12/17/24 13:04 Freq: NEEDED Status: Active Protocol: Document 12/18/24 13:15 SP (Rec: 12/18/24 13:52 SP [id number]) Physical Therapy Current Condition Current Condition Evaluation Date 12/17/24 Treatment Diagnosis L hip fx s/p ORIF; difficutly in walking Onset Date 12/15/24 M3 PT-IP Subjective Start: 12/17/24 13:04 Freq: NEEDED Status: Active Protocol: Document 12/19/24 08:15 AB (Rec: 12/19/24 08:50 AB [id number]) Subjective Physical Therapy Visit Type Type Treatment Note Visit Start Time 08:20 Visit Stop Time 08:40 Number of SUPERVISOR PROPELLANT CHARGE LOADING Visits 3 Physical Therapy Visit Comments Patient Comments Patient in chair start of session, agreeable to revisit stair training. Rates pain L hip 7-8/10 seated prior to session. Patient Goals Return home with to assist him. Therapy Pain Assessment Pain When Pain Assessed At Rest Pain Present Pain Present Pain Reported Location left thigh/hip Intensity 8 M4 PT-IP Mobility and Gait Start: 12/17/24 13:04 Freq: NEEDED Status: Active Protocol: Document 12/19/24 08:15 AB (Rec: 12/19/24 08:50 AB [id number]) PT-Transfer Assessment Sit to and From Stand Sit to and from Stand Standby Assistance,Use of Upper Extremities Equipment Transfer Assistive Device Gait Belt,Front Wheeled Walker Orthotic/Prosthetic Devices or Brace: No Gait Assessment Gait Gait Assistance Required: Standby Assistance Distance (Feet) 280 Able to Maintain Weight Bearing Status Yes During Gait Assistive Devices Assistive Device Gait Belt,Front Wheeled Walker Orthotic/Prosthetic Devices or Brace: No Gait Deviations General Gait Pattern Antalgic,Decreased Stride Length,Decreased Feet Clearance Factors Limiting Gait Function Factors Limiting Gait Function Decreased Activity Tolerance, Decreased Strength,Limited Range of Motion,Pain Comments Gait Comments Verbal cues to step through turns to avoid twisting unaffected ankle. Stair Climbing Assessment Evaluation Level of Assist On Stairs Contact Guard Assistance,1 Person Assistance Devices Stair Climbing Assistive Devices Straight Cane Technique/Endurance Stair Climbing Direction Ascend and Descend Stair Climbing Technique Step to Step Number of Steps Climbed 1 Stair Climbing Set # Repetitions (reps) 3 Comments Stair Climbing Comments Using 2 straight canes, verbal cues to ascend with unaffected LE and descend with affected LE first. PT-Balance Assessment Sitting Balance and Reactions Static Sitting Balance Ability Normal Dynamic Sitting Balance Ability Normal Standing Balance and Reactions Static Standing Balance Ability Good Dynamic Standing Balance Ability Good Device Used FWW M5 PT-IP Objective Assessments Start: 12/17/24 13:04 Freq: NEEDED Status: Active Protocol: Document 12/17/24 09:50 AB(2) (Rec: 12/17/24 13:20 AB(2) [id number]) Orientation Orientation/Cognition Level of Alertness Alert Orientation Name,Age,Place,Situation Language Function Ability No Deficits Noted Safety Awareness Decreased Safety Awareness Memory Description Short Term Impaired Strength Lower Extremity Strength Assessment Left Impaired Hip 3-/5 Knee 3+/5 Muscle Tone Muscle Tone WNL Yes M6 PT-IP Treatment Start: 12/17/24 13:04 Freq: NEEDED Status: Active Protocol: Document 12/19/24 08:15 AB (Rec: 12/19/24 08:50 AB [id number]) Physical Therapy Treatment Education Education Provided Weight Bearing Status,Safety M7 PT-IP Assessment and Plan Start: 12/17/24 13:04 Freq: NEEDED Status: Active Protocol: Document 12/19/24 08:15 AB (Rec: 12/19/24 08:50 AB [id number]) PT Summary Assessment and Plan Potential Rehabilitation Potential Good Summary Impairments Pain,ROM,Strength,Balance, Coordination,Sensation,Tone, Cognition,Bed Mobility, Transfers,Gait,Activity Tolerance Progress Towards Goals Slow Progress due to Pain,Slow Progress due to Activity Tolerance Assessment Summary Patient able to ascend and descend a step 3X with 2 SPC with CGA, verbal cues for sequence. Pt. rates pain 7-8/ 10 seated end of session, call light within reach. Goals Bed Mobility Goal Minimal Assistance Transfer Goal Minimal Assistance,Front Wheeled Walker Gait Goal Minimal Assistance,Front Wheel Walker Gait Distance 50 Other Goals improve bed mobility, transfers, ambulation using FWW ~ 150 ft SBA up/down 3 steps CGA Days to Meet Goals 10 Frequency of Treatment Other frequency 1-2x/day Treatment Plan Physical Therapy Treatment Plan Bed Mobility Training,Transfer Training,Gait Training, Therapeutic Exercise,Balance Retraining,Post Op Education, Discharge Planning,Hot or Cold Pack,Neuromuscular Re-ed, Coordination Retraining,Manual Therapy Weight Bearing Status Weight Bearing Status Weight Bear as Tolerated Allowed Weight Bearing Amount (enter % LLE WBAT or #) (%) Recommendations To Nursing Amount of Assist Needed Standby Assistance Discharge Recommendations PT Discharge Recommendations SNF Rehab Equipment Needed for Home Before FWW and [facility] if pt goes Discharge home- is borrowing from [employer] tomorrow. Transportation Needs at Discharge Private Vehicle
[2024-12-19] MEDS: GABAPENTIN 100 MG CAPSULE PO ×2 (08:57→15:04)
[2024-12-19] MEDS: ASPIRIN EC 81 MG TABLET PO (08:57)
[2024-12-19] MEDS: CHOLECALCIFEROL (VITAMIN D3) 1,000 UNIT TABLET 2000 UNIT PO (08:57)
[2024-12-19] MEDS: FAMOTIDINE 20 MG TABLET PO (08:58)
[2024-12-19] MEDS: SODIUM CHLORIDE 0.9% FLUSH 10 ML IV (09:22)
--- NOTE | 2024-12-19 11:45 | CM.DPC ---
Addendum entered by JONATHON Nobles 12/19/24 13:56: ADD: KRISTIAN met bedside with pt and updated on [facility] referral and provided brochure and confirmed pt's new address is: [address] [place] [address]. Pt's last PCP was at [facility] but his provider left and pt unsure if he is established with provider. SW called [facility] and confirmed pt is current with the [facility] in [facility] and does not have an official PCP but can be seen at their office. KRISTIAN updated Radha at [facility] on above info and faxed completed F2F and waiting for discharge summary to be available. BF Original Note: DCP Discharge Home Per MD, will assess patient bedside and likely that pt might be medically stable to discharge the hospital today. Per PT, pt able to ambulate the duron today with FWW and recommending home with assist and outpt PT vs HH. KRISTIAN met bedside with pt and explained role and he confirms that he is agreeable with d/c to home today if medically stable to discharge and confirms that his [facility] Other obtained FWW and cane for home use today and is available to provide transport at d/c. SW inquired about outpt PT vs HH and explained process and services provided. Pt states he feels HH would be beneficial at d/c until he is more mobile and aware that SW will need to confirm that HH agencies cover [place] area. KRISTIAN reached out to the following HH agencies: [facility]- [place] [facility]- do not cover [place] and not taking [facility] PPO at this time. [facility]- left msg KRISTIAN faxed new referral to [facility] to review and F2F and HH orders completed. Plan: KRISTIAN to follow for confirmation pt medically stable to discharge the hospital and to confirm pt's [place] address as facesheet only shows his old address in [place]. JONATHON Nobles
--- NOTE | 2024-12-19 12:52 | P.DS_ITS ---
History of Present Illness History of Present Illness Date Patient Seen: 12/19/24 Time Patient Seen: 12:52 Chief complaint: poss Femur fx Narrative: 54-year-old male with no significant past medical history who presented to the emergency department today [place]. He reports he was riding scooter when he fell landing on his left hip. He notes he instantly knew he had had a significant injury. He was in significant pain was unable to move the left leg. He noticed right after the fall that his left leg was externally rotated and he could not move it. He was brought in by EMS. He was given fentanyl per EMS prior to arrival to the emergency department, he received 2 doses of IV hydromorphone. He also received a nerve block with good results. Labs revealed a white blood cell count of 6.1, hemoglobin of 12.0, platelet count of 257. Chemistry panel showed a very mild hyponatremia at 134, glucose of 153 (nonfasting). X-ray revealed diffuse osseous demineralization. There is an acute comminuted left proximal femoral intertrochanteric fracture with involvement of the greater/lesser trochanters. Orthopedic surgery, Dr. Cantu, was contacted by the emergency department who requested admission by our service. He reported to the emergency department that he does not typically perform these repairs and it would not be done until a different orthopedic surgeon is on-call tomorrow. Currently, the patient reports his pain is poorly controlled. He states he has had poor pain control since arrival to the hospital. He states he was in his usual state of health prior to his fall today. He last had a checkup approximately 2 years ago. He states he has no medical conditions. He is in excellent health per his report. He takes no medications. Discharge Providers Provider Date of admission: 12/15/24 11:59 Discharge Date: 12/19/24 Consults: 12/15/24 18:06 Consult to Orthopedic Surgery Routine Comment: Consulting Provider: Calos Cantu Reason for consultation: femur fracture. Has provider been notified: Yes 12/17/24 01:29 Consult to Physical Therapy Evaluate & Treat Comment: Physician Instructions: Evaluate and Treat 12/17/24 14:02 Consult to Occupational Therapy Evaluate & Treat Comment: Physician Instructions: Evaluate and treat Discharge provider: Segundo Mart DO Summary Hospital Course Discharge Diagnosis: 1. Acute comminuted L proximal femoral intertrochanteric fracture, present on admission and active, pathologic likely due to osteoporosis. 2. Pathologic fracture, present on admission and active. 3. Mild anemia, present on admission and active. 4. Nicotine dependence, present on admission and active. 5. Hyponatremia Hospital Course: This is a 54 year old male who presented after a skateboarding accident with left hip pain. Imaging showed a L proximal femur fracture. He underwent ORIF with L intermedullary nail with orthopedics. There was some difficulty with uncontrolled pain after surgery which took a day or two to improve. Once pain was better controlled he started to progress quickly with therapies, ultimately improving to the point where therapy team recommended discharge home. His initial imaging showed fairly notable demineralization on radiographs, this was evaluated with TSH and Vit D levels. TSH was normal and vitamin D was undetectable on our lab assay (<12). He had mild hyponatremia and was asymptomatic, no further evaluation was deemed necessary. He was started on oral vitamin D. Recommend he establish with PCP for further osteoporosis evaluation and management as an outpatient. He was given prescription for pain medications along with aspirin twice daily for DVT prevention after hip surgery. Time Spent with Patient Time spent: Greater than 30 minutes Exam Vital Signs (past 8 hours): - 12/19/24 08:00 Temperature 98.3 F Pulse Rate 75 Respiratory Rate 16 Blood Pressure 127/75 Pulse Oximetry 96 Oxygen Flow Rate 0 Oxygen Delivery Method Room Air Oxygen Flow Rate 0 Narrative Exam Narrative: NAD, alert and oriented. Fluent speech. Lungs are clear, normal rate and effort. Heart is regular, no murmur gallop or rub. Abdomen is soft, non distended. 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 Follow up with their office in a couple of weeks. Your Vit. D level was very low, continue OTC repletion. Aspirin BID for 6 weeks after surgery to prevent DVT. Okay for tylenol and motrin at home, can alternate for milder pain. Please try to establish with PCP for further evaluation for possible osteoporosis and vitamin D. Discharge orders & Medications Prescriptions: New aspirin 81 mg Tablet,Delayed Release (Dr/Ec) 81 mg PO BID 40 Days Qty: 80 0RF acetaminophen 325 mg Tablet 975 mg PO Q8H Qty: 90 0RF cholecalciferol (vitamin D3) 25 mcg (1,000 unit) Tablet 2,000 unit PO DAILY Qty: 30 0RF cyclobenzaprine 5 mg tablet 5 mg PO Q8HR PRN (Reason: Muscle Spasm) 7 Days Qty: 20 0RF hydromorphone 2 mg Tablet 2 mg PO Q3H PRN (Reason: Pain, Severe (7-10)) 7 Days Qty: 40 0RF Medication counseling provided by Pharmacist: Yes Follow up/Referrals: Ed Murillo MD [Physician] - 01/01/25 11:00 am (Appt:01/01 @ 11:[address] Murillo @ [facility] [place] [facility] please arrive 15 min prior to scheduled appointment time ) Diet/Activity/Treatments Diet: Diet as Tolerated and Regular Activity: Weightbearing as tolerated. Skin/Wound/Dressing Care Dressing: May shower. If dressings become wet or dirty, may replace with clean, dry gauze. No bathing or otherwise soaking incisions. Do not apply any creams, lotions, or ointments to incisions. Visit Report/Discharge Packet Stand Alone Forms: Patient Portal/API, Stroke Signs & Symptoms Quality VTE Deep Vein Thrombosis/Pulmonary Embolism Present on Admission: No
--- NOTE | 2024-12-19 14:59 | OT.IP.TRT ---
Current Diagnoses Displaced intertrochanteric fracture of unspecified femur, initial encounter for closed fracture (12/15/24) Surgery Performed Operation Date: 12/16/24 17:15 Actual Procedures p Intramedullary Nailing Femur(Left) - Ed Murillo MD Occupational Therapy Treatment Note M2 OT-IP Current Condition Start: 12/17/24 15:21 Freq: Status: Active Protocol: Document 12/17/24 15:22 [facility] (Rec: 12/17/24 15:33 [facility] [id number]) Occupational Therapy Current Condition Current Condition Evaluation Date 12/17/24 Treatment Diagnosis Left hip fx, S/P ORIF Weight Bearing Status Weight Bearing Status Weight Bear as Tolerated M3 OT- IP Subjective and Pain Start: 12/17/24 15:21 Freq: Status: Active Protocol: Document 12/19/24 14:56 [facility] (Rec: 12/19/24 14:59 [facility] [id number]) OT- Subjective Occupational Therapy Visit Type Type Treatment Note Visit Start Time 14:48 Visit Stop Time 15:56 Occupational Therapy Visit Comments Patient Comments Pt having questions for showering needs. Patient/Caregiver Goals To go home. M4 OT- IP ADL's Start: 12/17/24 15:21 Freq: Status: Active Protocol: Document 12/19/24 14:56 [facility] (Rec: 12/19/24 14:59 [facility] [id number]) OT ADL-Bathing Comments OT Bathing Comments Pt having a bulky bandage and able to ask nursing whether if can be changed to something that is more low profile and waterproof or resistant. Educated to keep the dressing from getting wet. Per pt , his was able to get all his equipment needs for home use. Pt going home with his . M5 OT- IP IADL's Start: 12/17/24 15:21 Freq: Status: Active Protocol: Document 12/17/24 15:22 [facility] (Rec: 12/17/24 15:33 [facility] [id number]) OT-Instrumental Activities of Daily Living Deficits IADL Deficits Identified Deficits Home Safety Awareness Awareness of Need for Assistance at Home Good Awareness Ability to Problem Solve Emergency Able to Problem Solve Situations Medication Management Medication Management No Deficits Identified Money Management Money Management No Deficits Identified Meal Preparation Meal Preparation Caregiver Provides Assist Rn Admissions Rn Admissions Caregiver Provides Assist M9 OT- IP Assessment and Plan Start: 12/17/24 15:21 Freq: Status: Active Protocol: Document 12/18/24 12:13 [facility] (Rec: 12/18/24 12:18 [facility] [id number]) OT Summary Assessment and Plan Potential Rehabilitation Potential Excellent Analytic Complexity at Evaluation Moderate Summary OT Impairments Pain,Strength,Balance, Functional Mobility,Dressing, Toileting,Bathing,Toilet Transfers,Shower Transfers, Activity Tolerance Progress Towards Goals Progressing Toward Goals Assessment Summary Pt's pain more tolerable today and states able to feel his LLE more. Pt's able to asisst with gait belt, transfer, and walking in the room with the FWW. Pt's still not able to get OT equipment suggested yesterday . Pt main barrier will be the steps. Pt to go home with 24/7 assist versus SNF. Goals Self-Feeding Goal Independent Grooming Goal Independent Dressing Goal Contact Guard Assistance Toileting Goal Independent Bathing Goal Minimal Assistance Toilet Transfer Goal Independent Shower Transfer Goal Contact Guard Assistance Days to Meet Goals 3 Frequency of Treatment Frequency Of Treatment Once a Day Treatment Plan OT Treatment Plan ADL Training,Functional Mobility,Patient/Family Education,Discharge Planning Discharge Recommendations OT Discharge Recommendations Home with 24/7 Assist Available,Home Health, Home Equipment Needs WC, BSC, tub bench, LB dressing equipment,FWW Transportation Needs at Discharge Private Vehicle,Wheelchair/ Cabulance
--- NOTE | 2024-12-19 16:13 | PC.NURSE ---
D/c instructions reviewed with pt and spouse. Discussed how to care for dressings, and discussed hip precautions. Discussed no driving while taking narcotics. Gave pt his FMLA forms that were in his chart. Confirmed he had all belongings. IVs removed. Pt exited via w/c with ADVERTISING SUPERVISOR and significant other to private vehicle.
--- NOTE | 2024-12-20 07:26 | PC.NURSE ---
Late entry: 12/18 2mg tablet of dilauded given @ 20:20.
--- NOTE | 2024-12-20 12:24 | PC.NURSE ---
late entry: On 12/16/2024 at 22:40 0.5 mg Hydromorphone given to patient, with pain level 9.
== END 2024-12-19 16:15 | disposition home health service (06) | DRG 481 ==
LOC: ED 11:31 → AC 12:00
PROVIDERS: Hospitalist; Orthopaedic Surgery Adult Reconstructive Orthopaedic Surgery; Admitting Provider Family Medicine; Emergency Provider Emergency Medicine; Referring Provider Emergency Medicine; Visit Provider Family Medicine
PROC: 0QS706Z Reposition Left Upper Femur with Intramedullary Internal Fixation Device, Open Approach (ICD-10-PCS; CPT 27245; principal; 2024-12-16 17:15)
DX: M80.052A Age-related osteoporosis with current pathological fracture, left femur, initial encounter for fracture (principal); E87.1 Hypo-osmolality and hyponatremia; E83.51 Hypocalcemia; D64.9 Anemia, unspecified; F17.290 Nicotine dependence, other tobacco product, uncomplicated; R10.13 Epigastric pain; G89.18 Other acute postprocedural pain
CPT/HCPCS: 36415; 73502; 73552; 73700; 76000; 80048; 80053; 82306; 82330; 84443; 85025; 85027; 85610; 86850; 86900; 86901; 96374; 97116; 97162; 97166; 97530; 97535; 99284; 99291; 99292; A9270; J0690; J1171; J1885; J2704; J2765; J3010; J3410